=== PATIENT | male | born 1960 | race American Indian/Alaskan Native ===

== ENCOUNTER 2016-12-02 06:15 | Inpatient (IN) | payer OTHER ==
[2016-12-02] MEDS ORDERED: ECOTRIN PO ONE (06:43)
[2016-12-02] MEDS ORDERED: NACL 0.9% 500 ML 500 ML IV SCH (07:00)
[2016-12-02 07:14] LABS: Basophils % (Auto) 0.6 % (0.0-1.8); Eosinophils % (Auto) 0.7 % (0.0-4.3); Hematocrit 35.8 % (35.5-45.6); Mean Corpuscular HGB Conc 34 % (32-34); Mean Corpuscular Hemoglobin 30 pg (28-32); Mean Corpuscular Volume 90 fl (84-94); Platelet Count 191 K/mm3 (140-440); Red Blood Count 3.98 M/mm3 (3.65-5.03); Red Cell Distribution Width 15.8 % (13.2-15.2); White Blood Count 5.2 K/mm3 (4.5-11.0)
[2016-12-02 07:23] LABS: INR 1.19 (0.87-1.13)
[2016-12-02 07:43] LABS: Anion Gap 17 mmol/L; Blood Urea Nitrogen 25 mg/dL (9-20); Calcium 8.5 mg/dL (8.4-10.2); Carbon Dioxide 27 mmol/L (22-30); Chloride 96.1 mmol/L (98-107); Glucose 312 mg/dL (75-100); Potassium 3.8 mmol/L (3.6-5.0); Sodium 136 mmol/L (137-145)
[2016-12-02] MEDS ORDERED: CALAN ONE (08:09)
[2016-12-02] MEDS ORDERED: HEPARIN 10,000 UNITS/10 ML ONE (08:09)
[2016-12-02] MEDS ORDERED: HEPARIN/NS 5000 UNIT/500ML(CATH LAB) 1,000 ML IR ONE (08:09)
[2016-12-02] MEDS ORDERED: NITROGLYCERIN SYRINGE 3 ML ONE (08:09)
[2016-12-02] MEDS: SUBLIMAZE ONE ×2 (08:45→08:50)
[2016-12-02] MEDS: XYLOCAINE 2% INFILTRATI ONE ×2 (08:45→08:51)
[2016-12-02] MEDS: VERSED ONE ×2 (08:45→08:50)
[2016-12-02] MEDS ORDERED: MILK OF MAGNESIA PO PRN (09:40)
[2016-12-02] MEDS ORDERED: PERCOCET 5/325 PO PRN (09:40)
[2016-12-02] MEDS ORDERED: TYLENOL PO PRN (09:40)
[2016-12-02] MEDS ORDERED: D50W (25GM) Syringe IV PRN (09:40)
[2016-12-02] MEDS ORDERED: ALUM-MAG HYDROX-SIMETH 200-200-20MG/5ML PO PRN (09:40)
[2016-12-02] MEDS ORDERED: AMBIEN PO PRN (09:40)
[2016-12-02] MEDS ORDERED: ZOFRAN IV PRN (09:40)
[2016-12-02] MEDS ORDERED: DULCOLAX PR PRN (09:40)
--- NOTE | 2016-12-02 09:52 | Event Note ---
Date: 12/02/16 Patient presented for elective LHC and RHC and found to have significantly elevated filling pressures, and LVEF 10%. He is admitted for IV diuresis and inotropic support. Will also need to arrange for lifevest 1. Non-ischemic cardiomyopathy Non-obstructive CAD by C LVEF 10% PCWP 38 mm Hg, mean PAP 64 mm Hg, Mean RAP 41 mm Hg and LVEDP 43 mm Hg Mild to moderate aortic regurgitation 2. Acute decompensated systolic heart failure NYHA class III 3. Type II DM 4. Obstructive sleep apnea 5. Systemic Hypertension Recommendations: Admit for IV diuresis and inotropic support with milrinone Resume all home meds except for metformin (hold for 48 hours post cath) Arrange for lifevest prior to discharge Arrange for sleep study as outpatient
[2016-12-02] MEDS ORDERED: NON-FORMULARY (Potassium Chloride [Klor-Con 10] 20 MEQ) PO SCH (10:00)
[2016-12-02] MEDS: PRIMACOR 20 MG in D5W 80 ML IV SCH (10:14)
[2016-12-02] MEDS: NOVOLOG SUB-Q SCH ×4 (10:25→21:35)
[2016-12-02] MEDS ORDERED: NOVOLOG SUB-Q ONE (10:28)
--- NOTE | 2016-12-02 11:52 | Cardiac Catherization Report ---
INDICATION FOR PROCEDURE: Dilated cardiomyopathy. ORDERING PHYSICIAN: Maryuri Villaseñor MD PROCEDURES PERFORMED: 1. Selective left and right coronary angiography. 2. Left ventriculography. 3. Right heart catheterization with hemodynamic measurements and oxygen saturation run. 4. Ascending aortography. DESCRIPTION OF PROCEDURE: After obtaining written consent, the patient was draped using sterile technique. A 2% lidocaine was injected into the right wrist. A 6-[place] vascular sheath was inserted into the right radial artery. A 6-[place] vascular sheath was inserted into her left brachial vein through a previously inserted intravenous catheter. A 6-[place]izen [place] Morrice-Radu catheter was used to measure right-sided hemodynamics. A 6[place] JL4 catheter was used to selectively engage the left coronary artery. A 6-[place]izen [place] JR4 catheter was used to selectively engage the right coronary artery. A 6-Citizen [place] pigtail catheter was used to perform a left ventriculogram, and 6[place] pigtail catheter was used to perform an ascending aortogram. No complications occurred during the procedure. Hemostasis was achieved at the end of the procedure using manual pressure. ESTIMATED BLOOD LOSS: Minimal. SPECIMEN REMOVED: None. FINDINGS: HEMODYNAMICS: 1. The mean pulmonary capillary wedge pressure was 38 mmHg. 2. The pulmonary artery systolic pressure was 97 mmHg with a diastolic pressure of 42 mmHg. The mean pulmonary artery pressure was 64 mmHg. 3. The right ventricular systolic pressure was 81 mmHg with the right ventricular end-diastolic pressure of 40 mmHg. 4. The mean right arterial pressure was 41 mmHg. 5. The aortic pressure was 130/77. The left ventricular systolic pressure was 135 mmHg and the left ventricular end-diastolic pressure was 43 mmHg. 6. The pulmonary artery saturation was 42%, aortic saturation 82%, right ventricular saturation 45%, right atrial saturation 46%, and superior vena cava saturation was 50%. 7. The cardiac output is 4.73 L per minute with a cardiac index of 2.26 L per minute per meter sq. CARDIAC STRUCTURES: The ascending aorta is normal in size. The left ventricle is severely dilated with severe global left ventricular hypokinesis with the left ventricular ejection fraction estimated at less than or equal to 10%. There is evidence of [id number] aortic regurgitation. No significant mitral regurgitation was appreciated. CORONARY ANATOMY: 1. This is a left dominant circulation. 2. The left main is a very short and angiographically normal vessel. 3. The left anterior descending artery has mild diffuse 10-20% luminal irregularities. 4. The left circumflex artery is a large, dominant angiographically normal artery. 5. The right coronary artery is a small, nondominant with a 10-20% diffuse luminal irregularities. IMPRESSION: 1. Evidence of a dilated and hypokinetic left ventricle with an ejection fraction estimated at less than or equal to 10%. 2. Nonobstructive coronary artery disease with findings consistent with nonischemic cardiomyopathy. 3. Severely elevated left and right-sided filling pressures with evidence of severe pulmonary hypertension. 4. Evidence of depressed cardiac output with a pulmonary artery saturation of 42%. 5. [id number] aortic regurgitation noted on ascending aortogram. RECOMMENDATIONS: The patient will be recommended for admission. The patient will be recommended for IV diuresis and IV inotropic support. The patient also will be recommended for LifeVest prior to discharge. [facility]# [id number] YULISSA/MARY ALICE
[2016-12-02] MEDS: HALFPRIN EC PO SCH (16:02)
[2016-12-02] MEDS: COREG PO SCH ×2 (16:04→21:37)
[2016-12-02] MEDS: ALDACTONE PO SCH (16:07)
[2016-12-02] MEDS: MAG-OX PO SCH ×2 (16:07→21:36)
[2016-12-02] MEDS: GLUCOTROL XL PO SCH (16:11)
[2016-12-02] MEDS: ZAROXOLYN PO SCH (16:11)
[2016-12-02] MEDS: ZESTRIL PO SCH (16:19)
[2016-12-02] MEDS: LASIX IV SCH (19:44)
[2016-12-02] MEDS: K-DUR PO SCH (21:37)
[2016-12-03] MEDS: PRIMACOR 20 MG in D5W 80 ML IV SCH ×2 (01:20→19:39)
[2016-12-03 06:04] LABS: Anion Gap 15 mmol/L; BUN/Creatinine Ratio 22.22; Blood Urea Nitrogen 20 mg/dL (9-20); Calcium 8.4 mg/dL (8.4-10.2); Carbon Dioxide 27 mmol/L (22-30); Chloride 98.4 mmol/L (98-107); Glucose 163 mg/dL (75-100); Potassium 3.6 mmol/L (3.6-5.0); Sodium 137 mmol/L (137-145)
[2016-12-03] MEDS: LASIX IV SCH ×2 (07:25→17:42)
--- NOTE | 2016-12-03 09:53 | Progress Note ---
Assessment and Plan 1. Non-ischemic cardiomyopathy Non-obstructive CAD by [facility] LVEF 10% PCWP 38 mm Hg, mean PAP 64 mm Hg, Mean RAP 41 mm Hg and LVEDP 43 mm Hg Mild to moderate aortic regurgitation 2. Acute decompensated systolic heart failure NYHA class III 3. Type II DM 4. Obstructive sleep apnea 5. Systemic Hypertension Recommendations: Continue IV diuresis and inotropic support with milrinone Continue all home meds except for metformin (resume tomorrow) Arrange for lifevest prior to discharge Arrange for sleep study as outpatient Subjective Date of service: 12/03/16 Principal diagnosis: congestive heart failure Interval history: Looks a little better, diuresing well No significant events overnight Objective Vital Signs Temp Pulse Pulse Resp BP Pulse Ox 12/03/16 03:11 98.2 F 90 18 123/83 99 12/02/16 23:10 98.1 F 86 18 108/65 100 12/02/16 22:00 84 20 12/02/16 21:37 110/79 12/02/16 21:25 110/79 12/02/16 20:13 90 12/02/16 19:25 98.4 F 79 18 98/60 100 12/02/16 16:26 97.9 F 88 16 127/88 100 12/02/16 16:19 85 121/86 12/02/16 12:05 97.5 F L 22 116/87 12/02/16 11:15 89 15 120/82 99 12/02/16 10:45 87 12 108/83 99 12/02/16 10:30 85 16 120/84 100 12/02/16 10:15 86 13 128/86 100 12/02/16 10:07 100 12/02/16 10:00 88 20 142/99 99 - Physical Examination Narrative exam: GEN: NAD HEENT: Carotids 2+ NECK: SUPPLE, CVS: RRR, NORMAL S1S2 LUNGS/CHEST: CTA ABD: SOFT, EXTREMITIES- trace edema MSK: FROM X 4 EXTREMITIES NEURO: CN 2-12 GROSSLY INTACT, NO FOCAL DEFICITS PSY: CALM - Labs and Meds Comprehensive Metabolic Panel 12/03/16 Range/Units 04:54 Sodium 137 (137-145) mmol/L Potassium 3.6 (3.6-5.0) mmol/L Chloride 98.4 (98-107) mmol/L Carbon Dioxide 27 (22-30) mmol/L BUN 20 (9-20) mg/dL Creatinine 0.9 (0.8-1.5) mg/dL Glucose 163 H (75-100) mg/dL Calcium 8.4 (8.4-10.2) mg/dL
[2016-12-03] MEDS: K-DUR PO SCH ×2 (10:52→22:07)
[2016-12-03] MEDS: ALDACTONE PO SCH (10:52)
[2016-12-03] MEDS: GLUCOTROL XL PO SCH (10:52)
[2016-12-03] MEDS: LOVENOX SUB-Q SCH (10:52)
[2016-12-03] MEDS: ZESTRIL PO SCH (10:53)
[2016-12-03] MEDS: COREG PO SCH ×2 (10:53→22:06)
[2016-12-03] MEDS: ZAROXOLYN PO SCH (10:53)
[2016-12-03] MEDS: HALFPRIN EC PO SCH (10:53)
[2016-12-03] MEDS: MAG-OX PO SCH ×2 (10:55→22:07)
[2016-12-03] MEDS: NOVOLOG SUB-Q SCH ×4 (11:47→22:07)
[2016-12-04 05:43] LABS: Anion Gap 16 mmol/L; Blood Urea Nitrogen 21 mg/dL (9-20); Calcium 8.6 mg/dL (8.4-10.2); Carbon Dioxide 27 mmol/L (22-30); Glucose 134 mg/dL (75-100); Potassium 4.1 mmol/L (3.6-5.0); Sodium 135 mmol/L (137-145)
[2016-12-04] MEDS: PRIMACOR 20 MG in D5W 80 ML IV SCH ×3 (06:45→19:46)
[2016-12-04] MEDS: LASIX IV SCH ×2 (06:45→17:01)
[2016-12-04] MEDS: NOVOLOG SUB-Q SCH ×4 (07:30→22:28)
--- NOTE | 2016-12-04 09:37 | Progress Note ---
Assessment and Plan 1. Non-ischemic cardiomyopathy Non-obstructive CAD by [facility] LVEF 10% PCWP 38 mm Hg, mean PAP 64 mm Hg, Mean RAP 41 mm Hg and LVEDP 43 mm Hg Mild to moderate aortic regurgitation 2. Acute decompensated systolic heart failure NYHA class III 3. Type II DM 4. Obstructive sleep apnea 5. 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 Consult social service to help in expedited disability evaluation Subjective Date of service: 12/04/16 Principal diagnosis: congestive heart failure Interval history: Looks a little better, diuresing well No significant events overnight Objective Vital Signs Temp Pulse Resp BP Pulse Ox 12/04/16 05:09 98.2 F 86 18 90/52 98 12/04/16 04:00 80 12/03/16 23:38 98.2 F 91 H 18 99/59 98 12/03/16 19:21 97.9 F 81 18 108/68 98 12/03/16 17:26 97.5 F L 83 18 111/73 97 12/03/16 12:56 97.9 F 89 18 122/85 99 12/03/16 10:00 100 - Physical Examination Narrative exam: GEN: NAD HEENT: Carotids 2+ NECK: SUPPLE, CVS: RRR, NORMAL S1S2 LUNGS/CHEST: CTA ABD: SOFT, EXTREMITIES- trace edema MSK: FROM X 4 EXTREMITIES NEURO: CN 2-12 GROSSLY INTACT, NO FOCAL DEFICITS PSY: CALM - Labs and Meds Comprehensive Metabolic Panel 12/04/16 Range/Units 04:57 Sodium 135 L (137-145) mmol/L Potassium 4.1 (3.6-5.0) mmol/L Chloride 96.0 L (98-107) mmol/L Carbon Dioxide 27 (22-30) mmol/L BUN 21 H (9-20) mg/dL Creatinine 1.0 (0.8-1.5) mg/dL Glucose 134 H (75-100) mg/dL Calcium 8.6 (8.4-10.2) mg/dL
[2016-12-04] MEDS: ZESTRIL PO SCH (12:29)
[2016-12-04] MEDS: ZAROXOLYN PO SCH (12:29)
[2016-12-04] MEDS: HALFPRIN EC PO SCH (12:29)
[2016-12-04] MEDS: MAG-OX PO SCH ×2 (12:30→21:42)
[2016-12-04] MEDS: K-DUR PO SCH ×2 (12:30→21:41)
[2016-12-04] MEDS: ALDACTONE PO SCH (12:30)
[2016-12-04] MEDS: LOVENOX SUB-Q SCH (12:30)
[2016-12-04] MEDS: GLUCOTROL XL PO SCH (12:32)
[2016-12-04] MEDS: COREG PO SCH ×2 (12:33→21:42)
[2016-12-05] MEDS: PRIMACOR 20 MG in D5W 80 ML IV SCH (05:13)
[2016-12-05] MEDS: LASIX IV SCH (06:14)
[2016-12-05 07:15] LABS: Anion Gap 18 mmol/L; Blood Urea Nitrogen 21 mg/dL (9-20); Calcium 8.9 mg/dL (8.4-10.2); Carbon Dioxide 27 mmol/L (22-30); Chloride 96.7 mmol/L (98-107); Glucose 186 mg/dL (75-100); Potassium 4.4 mmol/L (3.6-5.0); Sodium 137 mmol/L (137-145)
[2016-12-05 09:31] VITALS: BP 136/85
[2016-12-05] MEDS: ZESTRIL PO SCH (09:32)
[2016-12-05] MEDS: HALFPRIN EC PO SCH (09:32)
[2016-12-05] MEDS: LOVENOX SUB-Q SCH (09:32)
[2016-12-05] MEDS: K-DUR PO SCH (09:33)
[2016-12-05] MEDS: MAG-OX PO SCH (09:33)
[2016-12-05] MEDS: ALDACTONE PO SCH (09:33)
[2016-12-05] MEDS: COREG PO SCH (09:33)
[2016-12-05] MEDS: ZAROXOLYN PO SCH (09:33)
[2016-12-05] MEDS: GLUCOTROL XL PO SCH (09:33)
[2016-12-05] MEDS: NOVOLOG SUB-Q SCH ×2 (09:34→12:41)
[2016-12-05] MEDS ORDERED: GLUCOPHAGE PO SCH (10:00)
--- NOTE | 2016-12-05 11:30 | Discharge Summary ---
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 He was admitted for IV diuresis and inotropic support for several days. Today he looks and feels better. He has no shortness of breath or lower extremity edema. The patient was recommended for a lifevest before discharge but he has since declined. Patient will be discharged today on medical therapy for his non-ischemic cardiomyopathy. 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 Disposition: TO HOME OR SELFCARE Core Measure Documentation - Palliative Care Palliative Care/ Comfort Measures: Not Applicable - Core Measures Any of the following diagnoses?: heart failure - Heart Failure Discharge Requirements ERNIE/ARB for LVSD if EF <40%: Yes Beta molly at discharge: Yes Exam - Constitutional Vitals: Temp Pulse Resp BP Pulse Ox 98.3 F 91 H 18 136/85 97 12/05/16 08:06 12/05/16 09:33 12/05/16 08:06 12/05/16 09:33 12/05/16 08:06 General appearance: Present: no acute distress - EENT Eyes: Present: PERRL - Neck Neck: Present: normal ROM - Respiratory Respiratory effort: normal - Cardiovascular Rhythm: regular - Psychiatric Psychiatric: appropriate mood/affect Plan Activity: advance as tolerated Diet: low fat, low cholesterol, low salt, diabetic Special Instructions: restrict fluid intake to (2liters per day) Follow up with: CONSTANTINO RIOS MD [Primary Care Provider] - 7 Days KAYLAN SOUZA MD [Staff Physician] - 7 Days Prescriptions: Furosemide [Lasix TAB] 60 mg PO QDAY #30 tablet
[2016-12-05] MEDS ORDERED: Fluarix Quad 2017-2018(36 MOS+) IM ONE (13:00)
[2016-12-07] MEDS ORDERED: ZAROXOLYN PO SCH (12:00)
== END 2016-12-05 14:45 | disposition home or self-care (01) | DRG 287 ==
LOC: CATHLABREC 06:15 → 4A 09:40
PROVIDERS: ADMIT Internal Medicine; ATTEND Internal Medicine Cardiovascular Disease
PROC: 4A023N8 Measurement of Cardiac Sampling and Pressure, Bilateral, Percutaneous Approach (ICD-10-PCS; principal; 2016-12-02)
PROC: B2111ZZ Fluoroscopy of Multiple Coronary Arteries using Low Osmolar Contrast (ICD-10-PCS; 2016-12-02)
PROC: B2151ZZ Fluoroscopy of Left Heart using Low Osmolar Contrast (ICD-10-PCS; 2016-12-02)
PROC: B4101ZZ Fluoroscopy of Abdominal Aorta using Low Osmolar Contrast (ICD-10-PCS; 2016-12-02)
PROC: 3E0234Z Introduction of Serum, Toxoid and Vaccine into Muscle, Percutaneous Approach (ICD-10-PCS; 2016-12-02)
DX: I11.0 Hypertensive heart disease with heart failure (principal); I50.23 Acute on chronic systolic (congestive) heart failure; I25.10 Atherosclerotic heart disease of native coronary artery without angina pectoris; I35.1 Nonrheumatic aortic (valve) insufficiency; I27.2 Other secondary pulmonary hypertension; E11.9 Type 2 diabetes mellitus without complications; I42.0 Dilated cardiomyopathy; G47.33 Obstructive sleep apnea (adult) (pediatric); Z98.49 Cataract extraction status, unspecified eye; Z82.49 Family history of ischemic heart disease and other diseases of the circulatory system; Z23 Encounter for immunization
CPT/HCPCS: 36415; 80048; 82962; 83735; 85025; 85610; 85730; 90686; 93005; 93010; 93460; 94760; 96372; A9270-GY; C1894; J1644; J1650; J1815; J1940; J2250; J2260; J3010; J7040; Q9967

== ENCOUNTER 2017-02-14 05:02 | Inpatient (IN) | payer OTHER ==
[2017-02-14 05:57] LABS: Basophils % (Auto) 0.4 % (0.0-1.8); Eosinophils % (Auto) 0.3 % (0.0-4.3); Mean Corpuscular HGB Conc 31 % (32-34); Mean Corpuscular Hemoglobin 30 pg (28-32); Mean Corpuscular Volume 96 fl (84-94); Platelet Count 212 K/mm3 (140-440); Red Blood Count 4.75 M/mm3 (3.65-5.03); Red Cell Distribution Width 15.9 % (13.2-15.2); White Blood Count 4.8 K/mm3 (4.5-11.0)
--- NOTE | 2017-02-14 05:57 | XRay Report ---
FINAL REPORT EXAM: XR CHEST ROUTINE 2V HISTORY: Shortness of breath TECHNIQUE: PA and lateral views of the chest were submitted. There are no previous studies available for comparison. FINDINGS: The heart is mildly enlarged. There is infiltrate/atelectasis in the right lower lobe with a moderate size right-sided effusion. The pulmonary vasculature is at the upper limits of normal. The skeletal structures do not show any acute changes. IMPRESSION: Infiltrates/atelectasis in the right lower lobe with right-sided effusion. Borderline pulmonary vasculature.
[2017-02-14 06:00] LABS: Hematocrit 45.7 % (35.5-45.6)
[2017-02-14 06:03] LABS: Anion Gap 24 mmol/L; BUN/Creatinine Ratio 37; Blood Urea Nitrogen 44 mg/dL (9-20); Calcium 9.1 mg/dL (8.4-10.2); Carbon Dioxide 21 mmol/L (22-30); Chloride 97.4 mmol/L (98-107); Glucose 302 mg/dL (75-100); Potassium 5.4 mmol/L (3.6-5.0); Sodium 137 mmol/L (137-145)
[2017-02-14] MEDS ORDERED: LASIX IV ONE ×2 (13:26→14:49)
[2017-02-14] MEDS ORDERED: ZITHROMAX PO ONE (13:26)
--- NOTE | 2017-02-14 13:27 | Emergency Department Report ---
ED General Adult HPI - General Chief complaint: Dyspnea/Respdistress Stated complaint: SOB Time Seen by Provider: 02/14/17 13:16 Source: patient, RN notes reviewed, old records reviewed Mode of arrival: Wheelchair Limitations: No Limitations - History of Present Illness Initial comments: This is a 56-year-old male who was previously unknown to this provider. The patient has a past medical history of heart disease, dilated left ventricle, ejection fraction at less than 10%, nonobstructive coronary artery disease with "nonischemic cardiomyopathy, pulmonary hypertension, pleural effusion. Presents to the ER with abdominal distention, shortness of breath, resolved chest pain. His symptoms are constant. They did not radiate anywhere. The increased with range of motion. They decreased with rest. -: Gradual Location: chest, left, right, lower extremity Severity scale (0 -10): 0 Quality: aching Consistency: constant Improves with: rest Worsens with: movement Associated Symptoms: chest pain, cough, shortness of breath, weakness. denies: confusion, syncope - Related Data Home Medications Medication Instructions Recorded Confirmed Last Taken Aspirin [Adult Low Dose Aspirin EC] 81 mg PO DAILY 12/02/16 02/14/17 01/05/17 AtorvaSTATin [Lipitor] 20 mg PO BID 12/02/16 02/14/17 01/05/17 Magnesium Oxide [Mag-Ox] 400 mg PO BID 12/02/16 02/14/17 01/05/17 Metolazone 5 mg PO BID 12/02/16 02/14/17 01/05/17 Potassium Chloride [Klor-Con 10] 20 meq PO BID 12/02/16 02/14/17 01/05/17 glipiZIDE [glipiZIDE ER] 5 mg PO QAM 12/02/16 02/14/17 01/05/17 metFORMIN [Glucophage] 1,000 mg PO BID 12/02/16 02/14/17 01/05/17 Carvedilol [Coreg] 6.25 mg PO BIDWM 02/14/17 02/14/17 Unknown Furosemide [Lasix TAB] 40 mg PO BID 02/14/17 02/14/17 Unknown Spironolactone [Aldactone] 25 mg PO QDAY 02/14/17 02/14/17 Unknown Torsemide [Demadex] 40 mg PO BID 02/14/17 02/14/17 Unknown Allergies Allergy/AdvReac Type Severity Reaction Status Date / Time No Known Allergies Allergy Verified 01/06/17 08:41 ED Review of Systems ROS: Stated complaint: SOB Other details as noted in HPI Constitutional: denies: fever Eyes: denies: vision change ENT: denies: epistaxis Respiratory: shortness of breath Cardiovascular: edema Gastrointestinal: denies: vomiting Genitourinary: denies: dysuria Musculoskeletal: arthralgia, myalgia Skin: denies: lesions Neurological: weakness ED Past Medical Hx - Past Medical History Hx Hypertension: Yes (2001) Hx Heart Attack/AMI: No Hx Congestive Heart Failure: Yes Hx Diabetes: Yes (Pill control) Hx Deep Vein Thrombosis: No Hx GERD: No Hx Arthritis: No Hx Asthma: Yes (last attack 2wks ago) Hx HIV: No - Social History Smoking Status: Never Smoker Substance Use Type: None - Medications Home Medications: Home Medications Medication Instructions Recorded Confirmed Last Taken Type Aspirin [Adult Low Dose Aspirin EC] 81 mg PO DAILY 12/02/16 02/14/17 01/05/17 History AtorvaSTATin [Lipitor] 20 mg PO BID 12/02/16 02/14/17 01/05/17 History Magnesium Oxide [Mag-Ox] 400 mg PO BID 12/02/16 02/14/17 01/05/17 History Metolazone 5 mg PO BID 12/02/16 02/14/17 01/05/17 History Potassium Chloride [Klor-Con 10] 20 meq PO BID 12/02/16 02/14/17 01/05/17 History glipiZIDE [glipiZIDE ER] 5 mg PO QAM 12/02/16 02/14/17 01/05/17 History metFORMIN [Glucophage] 1,000 mg PO BID 12/02/16 02/14/17 01/05/17 History Carvedilol [Coreg] 6.25 mg PO BIDWM 02/14/17 02/14/17 Unknown History Furosemide [Lasix TAB] 40 mg PO BID 02/14/17 02/14/17 Unknown History Spironolactone [Aldactone] 25 mg PO QDAY 02/14/17 02/14/17 Unknown History Torsemide [Demadex] 40 mg PO BID 02/14/17 02/14/17 Unknown History ED Physical Exam - General Limitations: No Limitations General appearance: alert, in no apparent distress, obese - Head Head exam: Present: atraumatic, normocephalic - Eye Eye exam: Present: normal appearance, EOMI. Absent: nystagmus - ENT ENT exam: Present: normal exam, normal orophraynx, mucous membranes moist, normal external ear exam - Neck Neck exam: Present: normal inspection, full ROM - Respiratory Respiratory exam: Present: decreased breath sounds, other (decreased breath sounds noted in the right hemithorax). Absent: respiratory distress, rhonchi, stridor - Cardiovascular Cardiovascular Exam: Present: regular rate, normal rhythm, normal heart sounds. Absent: systolic murmur, diastolic murmur, rubs, gallop - GI/Abdominal GI/Abdominal exam: Present: soft, distended, normal bowel sounds, other ( diffuse abdominal anasarca is noted). Absent: tenderness, guarding, rebound, rigid, pulsatile mass - Rectal Rectal exam: Present: deferred - Extremities Exam Extremities exam: Present: normal inspection, pedal edema, other (3+ pitting edema noted in the bilateral lower extremities). Absent: calf tenderness - Back Exam Back exam: Present: normal inspection, full ROM. Absent: paraspinal tenderness , vertebral tenderness - Neurological Exam Neurological exam: Present: alert, oriented X3, other (Extraocular movements intact. Tongue midline. No facial droop. Facial sensation intact to light touch in the V1, V2, V3 distribution bilaterally. 5 and 5 strength in 4 extremities.. Sensation is intact to light touch in 4 extremities.). Absent: motor sensory deficit - Psychiatric Psychiatric exam: Present: normal affect, normal mood - Skin Skin exam: Present: warm, dry, intact, normal color. Absent: rash ED Course Vital Signs 02/14/17 02/14/17 02/14/17 05:10 07:57 12:05 Temperature 97.5 F L 97.5 F L Pulse Rate 101 H 96 H 99 H Respiratory 20 18 18 Rate Blood Pressure 133/89 Blood Pressure 126/100 139/99 [Left] O2 Sat by Pulse 98 98 98 Oximetry ED Medical Decision Making - Lab Data Result diagrams: 02/14/17 05:17 02/14/17 21:17 Vital Signs 02/14/17 02/14/17 02/14/17 05:10 07:57 12:05 Temperature 97.5 F L 97.5 F L Pulse Rate 101 H 96 H 99 H Respiratory 20 18 18 Rate Blood Pressure 133/89 Blood Pressure 126/100 139/99 [Left] O2 Sat by Pulse 98 98 98 Oximetry Lab Results 02/14/17 02/14/17 02/14/17 Range/Units 05:17 05:17 05:17 WBC 4.8 (4.5-11.0) K/mm3 RBC 4.75 (3.65-5.03) M/mm3 Hgb 14.0 (11.8-15.2) gm/dl Hct 45.7 H (35.5-45.6) % MCV 96 H (84-94) fl MCH 30 (28-32) pg MCHC 31 L (32-34) % RDW 15.9 H (13.2-15.2) % Plt Count 212 (140-440) K/mm3 Lymph % (Auto) 18.7 (13.4-35.0) % Mcclain % (Auto) 13.7 H (0.0-7.3) % Eos % (Auto) 0.3 (0.0-4.3) % Baso % (Auto) 0.4 (0.0-1.8) % Lymph # 0.9 L (1.2-5.4) K/mm3 Mcclain # 0.7 (0.0-0.8) K/mm3 Eos # 0.0 (0.0-0.4) K/mm3 Baso # 0.0 (0.0-0.1) K/mm3 Seg Neutrophils % 66.9 (40.0-70.0) % Seg Neutrophils # 3.2 (1.8-7.7) K/mm3 Sodium 137 (137-145) mmol/L Potassium 5.4 H (3.6-5.0) mmol/L Chloride 97.4 L (98-107) mmol/L Carbon Dioxide 21 L (22-30) mmol/L Anion Gap 24 mmol/L BUN 44 H (9-20) mg/dL Creatinine 1.2 (0.8-1.5) mg/dL Estimated GFR > 60 ml/min BUN/Creatinine Ratio 37 % Glucose 302 H (75-100) mg/dL Lactic Acid (0.7-2.0) mmol/L Calcium 9.1 (8.4-10.2) mg/dL Troponin T 0.015 (0.00-0.029) ng/mL NT-Pro-B Natriuret Pep 7647 H (0-900) pg/mL 02/14/17 Range/Units 13:33 WBC (4.5-11.0) K/mm3 RBC (3.65-5.03) M/mm3 Hgb (11.8-15.2) gm/dl Hct (35.5-45.6) % MCV (84-94) fl MCH (28-32) pg MCHC (32-34) % RDW (13.2-15.2) % Plt Count (140-440) K/mm3 Lymph % (Auto) (13.4-35.0) % Mcclain % (Auto) (0.0-7.3) % Eos % (Auto) (0.0-4.3) % Baso % (Auto) (0.0-1.8) % Lymph # (1.2-5.4) K/mm3 Mcclain # (0.0-0.8) K/mm3 Eos # (0.0-0.4) K/mm3 Baso # (0.0-0.1) K/mm3 Seg Neutrophils % (40.0-70.0) % Seg Neutrophils # (1.8-7.7) K/mm3 Sodium (137-145) mmol/L Potassium (3.6-5.0) mmol/L Chloride (98-107) mmol/L Carbon Dioxide (22-30) mmol/L Anion Gap mmol/L BUN (9-20) mg/dL Creatinine (0.8-1.5) mg/dL Estimated GFR ml/min BUN/Creatinine Ratio % Glucose (75-100) mg/dL Lactic Acid 2.50 H* (0.7-2.0) mmol/L Calcium (8.4-10.2) mg/dL Troponin T (0.00-0.029) ng/mL NT-Pro-B Natriuret Pep (0-900) pg/mL - EKG Data -: EKG Interpreted by Me - EKG Data 02/14/17 14:12 Normal sinus, 99 bpm, normal axis, QTC prolonged, low voltage, poor R progression, abnormal EKG, not consistent with ST elevation myocardial infarction, appears grossly unchanged from prior EKG from November 2016 - Radiology Data Radiology results: report reviewed, image reviewed X-ray the chest and a stretch large pleural effusion, atelectasis versus infiltrate cannot be excluded - Medical Decision Making Differential diagnosis, including but not limited to: Recurrent pleural effusion , pulmonary hypertension, congestive heart failure, pneumonia, volume overload Assessment and plan: 56-year-old male with large right-sided pleural effusion, abdominal anasarca, lower extremity edema, elevated proBNP, we'll send a combination of pulmonary hypertension, right-sided heart failure and right- sided pleural effusion. When I go to evaluate the patient he is sleeping in a stretcher and in no significant respiratory distress. He is not requiring positive pressure ventilation or intubation at this time. However, he does require aggressive diuresis, Reduction, RV afterload reduction, and thoracic centesis at some point. Case is presented to the Hospital physician and pulmonary physician workers' compensation commissioner respectively, Dr. Burris and Dr. Schwab, who agreed to admit and consult on the patient respectively. clinically doubt pneumonia or infectious etiology, but will cover with antibiotics at admitting physician's request, patient will have blood cultures drawn, and he will be covered with ceftriaxone and azithromycin. Initial lactic acid 2.5, not especially elevated, I do not feel the patient will benefit from a 30 mL/kg bolus of IV fluids, given that he is already volume overloaded. Critical care attestation.: If time is entered above; I have spent that time in minutes in the direct care of this critically ill patient, excluding procedure time. ED Disposition Clinical Impression: Pleural effusion, CHF (congestive heart failure) Disposition: OP ADMIT IP TO THIS HOSP Is pt being admited?: Yes Condition: Good
--- NOTE | 2017-02-14 13:48 | History and Physical Report ---
History of Present Illness Chief complaint: I cant breathe right History of present illness: 56 YO Male with Systolic CHF(EF 10%), ROJAS, HTN, DM, Metabolic Syndrome presents to ED for evaluation. Pt states that he has experienced shortness of breath for the past week, with worsening symptoms over the past 2 days. Pt acknowledges Orthopnea/PND as well as noncompliance with low sodium diet. Pt denies medication noncompliance, fever, chills, CP, Palpitations, Syncope, Hemoptysis, Productive cough, BRBPR, Leg swelling, calf pain, individual/family history of DVT/PE. Upon further questioning, the patient states that he had chest discomfort with deep breathing, which resolved but did not have "chest pain". Pt seen and evaluated in ED and found to be is distress, and experiencing hypoxemic respiratory failure. Pt placed on supplemental oxygen. Pt CXR consistent with Right pleural effusion complicated by pneumonia. Pt treated with Pneumonia protocol. Past History Past Medical History: diabetes, heart failure, hypertension, other (Sleep Apnea) Past Surgical History: Other (Cardiac cath) Social history: , lives with family. denies: smoking, alcohol abuse, prescription drug abuse, IV drug use Family history: diabetes, hypertension Medications and Allergies Allergies Allergy/AdvReac Type Severity Reaction Status Date / Time No Known Allergies Allergy Verified 01/06/17 08:41 Home Medications Medication Instructions Recorded Confirmed Last Taken Type Aspirin [Adult Low Dose Aspirin EC] 81 mg PO DAILY 12/02/16 02/14/17 01/05/17 History AtorvaSTATin [Lipitor] 20 mg PO BID 12/02/16 02/14/17 01/05/17 History Magnesium Oxide [Mag-Ox] 400 mg PO BID 12/02/16 02/14/17 01/05/17 History Metolazone 5 mg PO BID 12/02/16 02/14/17 01/05/17 History Potassium Chloride [Klor-Con 10] 20 meq PO BID 12/02/16 02/14/17 01/05/17 History glipiZIDE [glipiZIDE ER] 5 mg PO QAM 12/02/16 02/14/17 01/05/17 History metFORMIN [Glucophage] 1,000 mg PO BID 12/02/16 02/14/17 01/05/17 History Carvedilol [Coreg] 12.5 mg PO BID 02/14/17 02/14/17 Unknown History Active Meds: Active Medications Ceftriaxone Sodium 1 gm/ (Sodium Chloride) 20 mls @ 20 mls/10 min IV ONCE.ED ONE PRN Reason: Protocol Stop: 02/14/17 14:24 Review of Systems Constitutional: no weight loss, no weight gain, no fever, no chills, no sweats Ears, nose, mouth and throat: no ear pain, no ear discharge, no tinnitis, no decreased hearing, no nose pain, no nasal congestion, no nasal discharge Cardiovascular: chest pain, orthopnea, edema, paroxysmal nocturnal dyspnea, no palpitations, no lightheadedness Respiratory: no cough, no cough with sputum, no excessive sputum Gastrointestinal: no nausea, no vomiting, no diarrhea, no constipation, no change in bowel habits Genitourinary Male: no dysuria, no urinary frequency, no urinary hesitancy, no nocturia Rectal: no pain, no incontinence, no bleeding Musculoskeletal: no neck stiffness, no neck pain, no shooting arm pain, no arm numbness/tingling, no low back pain, no shooting leg pain, no leg numbness/ tingling Integumentary: no rash, no pruritis, no redness, no sores, no wounds Neurological: no head injury, no transient paralysis, no paralysis, no weakness , no parathesias, no numbness, no tingling, no seizures Psychiatric: no anxiety, no memory loss, no change in sleep habits, no sleep disturbances, no insomnia, no hypersomnia, no change in appetite, no change in libido, no suicidal ideation Endocrine: no cold intolerance, no heat intolerance, no polyphagia, no excessive thirst, no polydipsia, no polyuria, no nocturia Hematologic/Lymphatic: no easy bruising, no easy bleeding Allergic/Immunologic: no urticaria, no allergic rhinitis, no wheezing Exam - Constitutional Vitals: Temp Pulse Resp BP Pulse Ox 97.5 F L 99 H 18 139/99 98 02/14/17 12:05 02/14/17 12:05 02/14/17 12:05 02/14/17 12:05 02/14/17 12:05 General appearance: Present: mild distress - EENT Eyes: Present: PERRL ENT: hearing intact, clear oral mucosa - Neck Neck: Present: supple, normal ROM - Respiratory Respiratory effort: labored Respiratory: bilateral: diminished, rhonchi - Cardiovascular Heart Sounds: Present: S1 & S2. Absent: rub, click - Extremities Extremities: pulses symmetrical, No edema Extremity abnormal: edema Peripheral Pulses: within normal limits - Abdominal General gastrointestinal: Present: soft, non-tender, non-distended, normal bowel sounds Male genitourinary: Present: normal - Integumentary Integumentary: Present: clear, warm, dry - Musculoskeletal Musculoskeletal: generalized weakness - Psychiatric Psychiatric: appropriate mood/affect, intact judgment & insight - Neurologic Neurologic: CNII-XII intact, moves all extremities Results - Labs CBC & Chem 7: 02/14/17 05:17 02/14/17 05:17 Labs: Abnormal lab results 02/14/17 02/14/17 02/14/17 Range/Units 05:17 05:17 05:17 Hct 45.7 H (35.5-45.6) % MCV 96 H (84-94) fl MCHC 31 L (32-34) % RDW 15.9 H (13.2-15.2) % [place] % (Auto) 13.7 H (0.0-7.3) % Lymph # 0.9 L (1.2-5.4) K/mm3 Potassium 5.4 H (3.6-5.0) mmol/L Chloride 97.4 L (98-107) mmol/L Carbon Dioxide 21 L (22-30) mmol/L BUN 44 H (9-20) mg/dL Glucose 302 H (75-100) mg/dL NT-Pro-B Natriuret Pep 7647 H (0-900) pg/mL Assessment and Plan - Patient Problems (1) Pneumonia Current Visit: Yes Status: Acute Qualifiers: Laterality: right Lung location: lower lobe of lung Plan to address problem: Pneumonia Protocol: IV Abx, IVF, Blood cultures, supplemental oxygen, nebulizer therapy, supportive care. (2) Acute respiratory failure with hypoxemia Current Visit: Yes Status: Acute Plan to address problem: Supplemental oxygen, nebulizer therapy, treat pneumonia, pulmonary consulted, NIPPV as clinically indicated, (3) Diabetes Current Visit: Yes Status: Acute Plan to address problem: ADA diet, insulin, accu check (4) HTN (hypertension) Current Visit: Yes Status: Acute Plan to address problem: Monitor bp q shift, continue medical management. (5) CHF (congestive heart failure) Current Visit: Yes Status: Acute Plan to address problem: Fluid restriction, monitor uop q shift, afterload reduction, remote telemetry. (6) DVT prophylaxis Current Visit: Yes Status: Acute
[2017-02-14] MEDS ORDERED: PROVENTIL IH PRN (13:49)
[2017-02-14] MEDS ORDERED: DULCOLAX PR PRN (13:49)
[2017-02-14] MEDS ORDERED: ZOFRAN IV PRN (13:49)
[2017-02-14] MEDS ORDERED: MILK OF MAGNESIA PO PRN (13:49)
[2017-02-14] MEDS ORDERED: D50W (25GM) Syringe IV PRN (13:54)
[2017-02-14] MEDS ORDERED: D50W (25GM) Vial IV PRN (14:16)
[2017-02-14] MEDS ORDERED: ZITHROMAX ONE (14:49)
[2017-02-14] MEDS: NOVOLOG SUB-Q SCH ×2 (18:42→22:12)
[2017-02-14] MEDS: LASIX IV SCH (18:43)
[2017-02-14] MEDS: cefTRIAXone 1 GM in NACL 0.9% 20 ML IV ONE ×2 (19:36→20:34)
[2017-02-14] MEDS: MAG-OX PO SCH (21:13)
[2017-02-14] MEDS: COREG PO SCH (21:14)
[2017-02-14] MEDS ORDERED: cefTRIAXone 1 GM in NACL 0.9% 20 ML IV ONE (21:45)
[2017-02-14] MEDS ORDERED: NON-FORMULARY (Potassium Chloride [Klor-Con 10] 20 MEQ) PO SCH (22:00)
[2017-02-14] MEDS: ZAROXOLYN PO SCH (22:12)
[2017-02-15] MEDS: TYLENOL PO PRN (01:27)
[2017-02-15] MEDS: LASIX IV SCH ×2 (06:41→17:51)
[2017-02-15] MEDS: NOVOLOG SUB-Q SCH ×4 (08:53→22:33)
[2017-02-15] MEDS ORDERED: ROCEPHIN/NS 1 GM/50 ML 1 GM/50 ML BAG IV SCH (10:00)
[2017-02-15] MEDS ORDERED: ZITHROMAX 500 MG in NACL 0.9% 250ML 250 ML IV SCH (10:00)
[2017-02-15] MEDS ORDERED: ZESTRIL PO SCH (10:00)
--- NOTE | 2017-02-15 10:52 | Consultation ---
History of Present Illness Consult date: 02/15/17 Consult reason: known to you History of present illness: This is a 56yr old male with a history of non-ischemic cardiomyopathy by cardiac cath 2 months ago that showed no significant coronary disease but left ventricular ejection fraction 10%. Patient is known to [facility] but was recently referred to the CHF clinic at [facility] for transplant evaluation versus LVAD. Patient presented to this hospital with complaints of worsening shortness of breath, edema and generalized weakness. A chest x-ray done in the ER reports infiltrates versus atelectasis in the right lower lobe with right sided effusion. Patient denies fever. He denies chest pain. Patient admits to noncompliance with dietary restrictions. Past History Past Medical History: diabetes, heart failure, hypertension, other (Sleep Apnea) Past Surgical History: Other (Cardiac cath) Social history: , lives with family. denies: smoking, alcohol abuse, prescription drug abuse, IV drug use Family history: diabetes, hypertension Medications and Allergies Allergies Allergy/AdvReac Type Severity Reaction Status Date / Time No Known Allergies Allergy Verified 01/06/17 08:41 Home Medications Medication Instructions Recorded Confirmed Last Taken Type Aspirin [Adult Low Dose Aspirin EC] 81 mg PO DAILY 12/02/16 02/14/17 01/05/17 History AtorvaSTATin [Lipitor] 20 mg PO BID 12/02/16 02/14/17 01/05/17 History Magnesium Oxide [Mag-Ox] 400 mg PO BID 12/02/16 02/14/17 01/05/17 History Metolazone 5 mg PO BID 12/02/16 02/14/17 01/05/17 History Potassium Chloride [Klor-Con 10] 20 meq PO BID 12/02/16 02/14/17 01/05/17 History glipiZIDE [glipiZIDE ER] 5 mg PO QAM 12/02/16 02/14/17 01/05/17 History metFORMIN [Glucophage] 1,000 mg PO BID 12/02/16 02/14/17 01/05/17 History Carvedilol [Coreg] 6.25 mg PO BIDWM 02/14/17 02/14/17 Unknown History Furosemide [Lasix TAB] 40 mg PO BID 02/14/17 02/14/17 Unknown History Spironolactone [Aldactone] 25 mg PO QDAY 02/14/17 02/14/17 Unknown History Torsemide [Demadex] 40 mg PO BID 02/14/17 02/14/17 Unknown History Active Meds: Active Medications Acetaminophen (Tylenol) 650 mg PO Q4H PRN PRN Reason: Pain MILD(1-3)/Fever >100.5/NAYAK Last Admin: 02/15/17 01:27 Dose: 650 mg Albuterol (Proventil) 2.5 mg IH Q4HRT PRN PRN Reason: Shortness Of Breath Aspirin (Halfprin Ec) 81 mg PO DAILY [facility] Atorvastatin Calcium (Lipitor) 20 mg PO BID [facility] Last Admin: 02/14/17 21:13 Dose: 20 mg Azithromycin (Zithromax) 500 mg PO QDAY [facility] Bisacodyl (Dulcolax) 10 mg [place] QDAY PRN PRN Reason: Constipation unrelieved by MOM Carvedilol (Coreg) 6.25 mg PO BID [facility] Last Admin: 02/14/17 21:14 Dose: 6.25 mg Dextrose (D50w (25gm) Vial) 25 gm IV PRN PRN PRN Reason: HYPOGLYCEMIA Furosemide (Lasix) 40 mg IV BID@0600,1800 [facility] Last Admin: 02/15/17 06:41 Dose: 40 mg Ceftriaxone Sodium 1 gm/ (Sodium Chloride) 20 mls @ 20 mls/10 min IV Q24HR [facility] Insulin Aspart (Novolog) 0 units SUB-Q ACHS [facility] PRN Reason: Protocol Last Admin: 02/15/17 08:53 Dose: Not Given Lisinopril (Zestril) 40 mg PO DAILY [facility] Magnesium Hydroxide (Milk Of Magnesia) 30 ml PO Q4H PRN PRN Reason: Constipation Magnesium Oxide (Mag-Ox) 400 mg PO BID [facility] Last Admin: 02/14/17 21:13 Dose: 400 mg Metolazone (Zaroxolyn) 5 mg PO BID [facility] Last Admin: 02/14/17 22:12 Dose: 5 mg Ondansetron HCl (Zofran) 4 mg IV Q8H PRN PRN Reason: N/V unrelieved by Reglan Physical Examination Vital Signs Temp Pulse Resp BP Pulse Ox 97.5 F L 101 H 20 133/89 98 02/14/17 05:10 02/14/17 05:10 02/14/17 05:10 02/14/17 05:10 02/14/17 05:10 Results 02/14/17 05:17 02/14/17 21:17 Comprehensive Metabolic Panel 02/14/17 Range/Units 21:17 Potassium 4.6 (3.6-5.0) mmol/L Assessment and Plan Decompensated systolic heart failure Right Pleural effusion Non-ischemic cardiomyopathy Non-obstructive CAD LVEF 10% by [facility] 11/2016 DM Obstructive sleep apnea Hypertension
[2017-02-15] MEDS: HALFPRIN EC PO SCH (11:26)
[2017-02-15] MEDS: ZITHROMAX PO SCH (11:26)
[2017-02-15] MEDS: MAG-OX PO SCH ×2 (11:26→22:34)
[2017-02-15] MEDS: COREG PO SCH (11:36)
--- NOTE | 2017-02-15 12:11 | Consultation ---
History of Present Illness Consult date: 02/15/17 Requesting physician: ROSALINDA VEE Reason for consult: pleural effusion History of present illness: 56 y/o male with known CHF (systolic) and recurrent pleural effusion, admitted with dyspnea. Has right sided effusion. This was just tapped in December via rads on an order from our office. Past History Past Medical History: diabetes, heart failure, hypertension, other (Sleep Apnea) Past Surgical History: Other (Cardiac cath) Social history: , lives with family. denies: smoking, alcohol abuse, prescription drug abuse, IV drug use Family history: diabetes, hypertension Medications and Allergies Allergies Allergy/AdvReac Type Severity Reaction Status Date / Time No Known Allergies Allergy Verified 01/06/17 08:41 Home Medications Medication Instructions Recorded Confirmed Last Taken Type Aspirin [Adult Low Dose Aspirin EC] 81 mg PO DAILY 12/02/16 02/14/17 01/05/17 History AtorvaSTATin [Lipitor] 20 mg PO BID 12/02/16 02/14/17 01/05/17 History Magnesium Oxide [Mag-Ox] 400 mg PO BID 12/02/16 02/14/17 01/05/17 History Metolazone 5 mg PO BID 12/02/16 02/14/17 01/05/17 History Potassium Chloride [Klor-Con 10] 20 meq PO BID 12/02/16 02/14/17 01/05/17 History glipiZIDE [glipiZIDE ER] 5 mg PO QAM 12/02/16 02/14/17 01/05/17 History metFORMIN [Glucophage] 1,000 mg PO BID 12/02/16 02/14/17 01/05/17 History Carvedilol [Coreg] 6.25 mg PO BIDWM 02/14/17 02/14/17 Unknown History Furosemide [Lasix TAB] 40 mg PO BID 02/14/17 02/14/17 Unknown History Spironolactone [Aldactone] 25 mg PO QDAY 02/14/17 02/14/17 Unknown History Torsemide [Demadex] 40 mg PO BID 02/14/17 02/14/17 Unknown History Active Meds: Active Medications Acetaminophen (Tylenol) 650 mg PO Q4H PRN PRN Reason: Pain MILD(1-3)/Fever >100.5/NAYAK Last Admin: 02/15/17 01:27 Dose: 650 mg Albuterol (Proventil) 2.5 mg IH Q4HRT PRN PRN Reason: Shortness Of Breath Aspirin (Halfprin Ec) 81 mg PO DAILY [facility] Last Admin: 02/15/17 11:26 Dose: 81 mg Atorvastatin Calcium (Lipitor) 20 mg PO BID [facility] Last Admin: 02/15/17 11:37 Dose: 20 mg Azithromycin (Zithromax) 500 mg PO QDAY [facility] Last Admin: 02/15/17 11:26 Dose: 500 mg Bisacodyl (Dulcolax) 10 mg ND QDAY PRN PRN Reason: Constipation unrelieved by MOM Carvedilol (Coreg) 3.125 mg PO BID [facility] Dextrose (D50w (25gm) Vial) 25 gm IV PRN PRN PRN Reason: HYPOGLYCEMIA Furosemide (Lasix) 40 mg IV BID@0600,1800 [facility] Last Admin: 02/15/17 06:41 Dose: 40 mg Ceftriaxone Sodium 1 gm/ (Sodium Chloride) 20 mls @ 20 mls/10 min IV Q24HR [facility] Insulin Aspart (Novolog) 0 units SUB-Q ACHS [facility] PRN Reason: Protocol Last Admin: 02/15/17 08:53 Dose: Not Given Lisinopril (Zestril) 40 mg PO DAILY [facility] Last Admin: 02/15/17 11:37 Dose: Not Given Magnesium Hydroxide (Milk Of Magnesia) 30 ml PO Q4H PRN PRN Reason: Constipation Magnesium Oxide (Mag-Ox) 400 mg PO BID [facility] Last Admin: 02/15/17 11:26 Dose: 400 mg Metolazone (Zaroxolyn) 5 mg PO BID [facility] Last Admin: 02/14/17 22:12 Dose: 5 mg Ondansetron HCl (Zofran) 4 mg IV Q8H PRN PRN Reason: N/V unrelieved by Reglan Spironolactone (Aldactone) 25 mg PO QDAY [facility] Review of Systems All systems: negative Physical Examination Vital signs: Vital Signs Temp Pulse Resp BP Pulse Ox 97.5 F L 101 H 20 133/89 98 02/14/17 05:10 02/14/17 05:10 02/14/17 05:10 02/14/17 05:10 02/14/17 05:10 General appearance: no acute distress, appears uncomfortable Eyes: non-icteric ENT: oropharynx moist Neck: supple Effort: mildly labored Ascultation: Right: diminished breath sounds (base), rales (base) Percussion: Right: dull, Left: not dull Tactile fremitus: Right: diminished Cardiovascular: regular rate and rhythm Gastrointestinal: normoactive bowel sounds Extremities: edema normal mental status, non-focal exam Results - Laboratory Findings CBC and BMP: 02/14/17 05:17 02/16/17 06:38 Abnormal lab findings: Abnormal Labs 02/14/17 02/14/17 02/14/17 05:17 05:17 05:17 Hct 45.7 H MCV 96 H MCHC 31 L RDW 15.9 H [place] % (Auto) 13.7 H Lymph # 0.9 L Potassium 5.4 H Chloride 97.4 L Carbon Dioxide 21 L BUN 44 H Glucose 302 H POC Glucose Lactic Acid NT-Pro-B Natriuret Pep 7647 H 02/14/17 02/14/17 02/14/17 13:33 16:22 21:06 Hct MCV MCHC RDW [place] % (Auto) Lymph # Potassium Chloride Carbon Dioxide BUN Glucose POC Glucose 275 H 337 H Lactic Acid 2.50 H* NT-Pro-B Natriuret Pep 02/15/17 11:36 Hct MCV MCHC RDW [place] % (Auto) Lymph # Potassium Chloride Carbon Dioxide BUN Glucose POC Glucose 117 H Lactic Acid NT-Pro-B Natriuret Pep - Diagnostic Findings Chest x-ray: image reviewed (right sided effusion) Assessment and Plan 56 y/o male with systolic heart failure and right sided pleural effusion. 1. Await cards evaluation, if they elect to start Inotropes and want to watch effusion will do 2. If they feel that thora is still needed, will tap at bedside today.
[2017-02-15] MEDS: cefTRIAXone 1 GM in NACL 0.9% 20 ML IV SCH (12:49)
[2017-02-15] MEDS: ZAROXOLYN PO SCH ×2 (13:12→22:34)
--- NOTE | 2017-02-15 14:25 | Progress Note ---
Assessment and Plan Assessment and plan: 56 YO Male with Systolic CHF(EF 10%), ROJAS, HTN, DM, Metabolic Syndrome presents to ED for evaluation. Pt states that he has experienced shortness of breath for the past week, with worsening symptoms over the past 2 days. Pt acknowledges Orthopnea/PND as well as noncompliance with low sodium diet. Pt denies medication noncompliance, fever, chills, CP, Palpitations, Syncope, Hemoptysis, Productive cough, BRBPR, Leg swelling, calf pain, individual/family history of DVT/PE. Upon further questioning, the patient states that he had chest discomfort with deep breathing, which resolved but did not have "chest pain". Pt seen and evaluated in ED and found to be is distress, and experiencing hypoxemic respiratory failure. Pt placed on supplemental oxygen. Pt CXR consistent with Right pleural effusion complicated by pneumonia. Pt treated with Pneumonia protocol. Acute on Chronic Systolic congestive heart failure-Probably endstage Aspiration pneumonitis Diabetes mellitus with hypoglycemia Obesity HTN Generalized Anascar likely secondary to CHF B/L lower ext cellulitis with poor healing wound Right sided pleural effusion Mild to Moderate Protein calorie malnutrition Plan * Continue supportvie care * Discussed with cardiology will transfer to Tele * Strict I/O, Daily weight * Continue emperic antibiotics, patient is significantly anascar procluding fluids * Oxygen therapy with NPPIV if needed * Pulmonary consult, noted * Add insulin qhs * Miralone per cardiology * Lactic acidosis * compliance counselling provided * wound care consult * DVT/GI prophy * poor prognosis. plan of care discussed with patient and with cardioloist History Interval history: Patient see and examined, in mild respiratory distress. denies chest pain, nausea, vomiting, diarrhea, fever. still reports shortness of breath. per patient he ran out of his meds, also was recently admitted in a local [facility] for the same condition. Hospitalist Physical - Constitutional Vitals: Temp Pulse Resp BP Pulse Ox 97.3 F L 67 18 103/72 92 02/15/17 07:30 02/15/17 07:30 02/15/17 07:30 02/15/17 11:37 02/15/17 07:30 General appearance: Present: mild distress - EENT Eyes: Present: PERRL, EOM intact ENT: hearing intact - Neck Neck: Present: supple, normal ROM - Respiratory Respiratory effort: labored Respiratory: bilateral: rhonchi - Cardiovascular Rhythm: regular Heart Sounds: Present: S1 & S2. Absent: systolic murmur, diastolic murmur - Extremities Extremities: Full ROM Extremity abnormal: edema (+2 generalzed ) Peripheral Pulses: within normal limits - Abdominal General gastrointestinal: soft, non-tender, non-distended, other (generalized anascar) - Integumentary Integumentary: Present: clear, warm, decreased turgor - Psychiatric Psychiatric: appropriate mood/affect, cooperative - Neurologic Neurologic: CNII-XII intact, moves all extremities - Allied Health Allied health notes reviewed: nursing Results - Labs CBC & Chem 7: 02/14/17 05:17 12 21:17 Labs: Laboratory Last Values WBC 4.8 K/mm3 (4.5-11.0) 02/14/17 05:17 RBC 4.75 M/mm3 (3.65-5.03) 02/14/17 05:17 Hgb 14.0 gm/dl (11.8-15.2) 02/14/17 05:17 Hct 45.7 % (35.5-45.6) H 02/14/17 05:17 MCV 96 fl (84-94) H 02/14/17 05:17 MCH 30 pg (28-32) 02/14/17 05:17 MCHC 31 % (32-34) L 02/14/17 05:17 RDW 15.9 % (13.2-15.2) H 02/14/17 05:17 Plt Count 212 K/mm3 (140-440) 02/14/17 05:17 Lymph % (Auto) 18.7 % (13.4-35.0) 02/14/17 05:17 [place] % (Auto) 13.7 % (0.0-7.3) H 02/14/17 05:17 Eos % (Auto) 0.3 % (0.0-4.3) 02/14/17 05:17 Baso % (Auto) 0.4 % (0.0-1.8) 02/14/17 05:17 Lymph # 0.9 K/mm3 (1.2-5.4) L 02/14/17 05:17 [place] # 0.7 K/mm3 (0.0-0.8) 02/14/17 05:17 Eos # 0.0 K/mm3 (0.0-0.4) 02/14/17 05:17 Baso # 0.0 K/mm3 (0.0-0.1) 02/14/17 05:17 Seg Neutrophils % 66.9 % (40.0-70.0) 02/14/17 05:17 Seg Neutrophils # 3.2 K/mm3 (1.8-7.7) 02/14/17 05:17 Sodium 137 mmol/L (137-145) 02/14/17 05:17 Potassium 4.6 mmol/L (3.6-5.0) 02/14/17 21:17 Chloride 97.4 mmol/L (98-107) L 02/14/17 05:17 Carbon Dioxide 21 mmol/L (22-30) L 02/14/17 05:17 Anion Gap 24 mmol/L 02/14/17 05:17 BUN 44 mg/dL (9-20) H 02/14/17 05:17 Creatinine 1.2 mg/dL (0.8-1.5) 02/14/17 05:17 Estimated GFR > 60 ml/min 02/14/17 05:17 BUN/Creatinine Ratio 37 % 02/14/17 05:17 Glucose 302 mg/dL (75-100) H 02/14/17 05:17 POC Glucose 117 (70-105) H 02/15/17 11:36 Lactic Acid 2.40 mmol/L (0.7-2.0) H* 02/15/17 12:06 Calcium 9.1 mg/dL (8.4-10.2) 02/14/17 05:17 Troponin T 0.015 ng/mL (0.00-0.029) 02/14/17 05:17 NT-Pro-B Natriuret Pep 7647 pg/mL (0-900) H 02/14/17 05:17 - Imaging and Cardiology Chest x-ray: image reviewed (generalized anasacar)
[2017-02-15] MEDS: MILRINONE-D5W 20 MG/100 ML 20 MG/100 ML BAG IV SCH (16:25)
[2017-02-15] MEDS ORDERED: COREG PO SCH (22:00)
[2017-02-15] MEDS: LEVEMIR SUB-Q SCH (22:33)
[2017-02-16] MEDS: MILRINONE-D5W 20 MG/100 ML 20 MG/100 ML BAG IV SCH ×2 (06:32→20:09)
[2017-02-16] MEDS: LASIX IV SCH ×2 (06:32→18:53)
[2017-02-16 07:20] LABS: BUN/Creatinine Ratio 37; Blood Urea Nitrogen 41 mg/dL (9-20); Calcium 8.9 mg/dL (8.4-10.2); Carbon Dioxide 30 mmol/L (22-30); Glucose 185 mg/dL (75-100); Potassium 3.8 mmol/L (3.6-5.0); Sodium 142 mmol/L (137-145)
[2017-02-16 07:27] LABS: Anion Gap 16 mmol/L
[2017-02-16] MEDS: MAG-OX PO SCH ×2 (09:22→22:56)
[2017-02-16] MEDS: ZITHROMAX PO SCH (09:22)
[2017-02-16] MEDS: ZAROXOLYN PO SCH ×2 (09:23→22:56)
[2017-02-16] MEDS: HALFPRIN EC PO SCH (09:23)
[2017-02-16] MEDS: NOVOLOG SUB-Q SCH ×4 (09:23→23:01)
[2017-02-16] MEDS ORDERED: ALDACTONE PO SCH (10:00)
[2017-02-16] MEDS: cefTRIAXone 1 GM in NACL 0.9% 20 ML IV SCH (10:55)
--- NOTE | 2017-02-16 12:09 | Progress Note ---
Assessment and Plan 56 y/o male with systolic heart failure and right sided pleural effusion. 1. Repeat CXR in am 2. Pending clinical status, may decide to tap tomorrow but will discuss with patient and cards first 3. Continue supplemental O2. Subjective Date of service: 02/16/17 Interval history: No acute events. Feels better with inotropic therapy. Objective Vital Signs - 12hr 02/16/17 02/16/17 00:20 06:08 Temperature 97.5 F L 97.8 F Pulse Rate 97 H 94 H Respiratory 20 20 Rate Blood Pressure 110/74 120/88 O2 Sat by Pulse 100 100 Oximetry Constitutional: no acute distress, appears uncomfortable Eyes: non-icteric ENT: oropharynx moist Neck: supple Effort: mildly labored Ascultation: Right: diminished breath sounds (base), rales (base) Percussion: Right: dull, Left: not dull Tactile fremitus: Right: diminished Cardiovascular: regular rate and rhythm Gastrointestinal: normoactive bowel sounds Extremities: edema Neurologic: normal mental status, non-focal exam CBC and BMP: 02/14/17 05:17 02/16/17 06:38 Abnormal lab findings: Abnormal Labs 02/14/17 02/14/17 02/14/17 05:17 05:17 05:17 Hct 45.7 H MCV 96 H MCHC 31 L RDW 15.9 H [place] % (Auto) 13.7 H Lymph # 0.9 L Potassium 5.4 H Chloride 97.4 L Carbon Dioxide 21 L BUN 44 H Glucose 302 H POC Glucose Lactic Acid NT-Pro-B Natriuret Pep 7647 H 02/14/17 02/14/17 02/14/17 13:33 16:22 21:06 Hct MCV MCHC RDW [place] % (Auto) Lymph # Potassium Chloride Carbon Dioxide BUN Glucose POC Glucose 275 H 337 H Lactic Acid 2.50 H* NT-Pro-B Natriuret Pep 02/15/17 02/15/17 02/15/17 11:36 12:06 16:13 Hct MCV MCHC RDW [place] % (Auto) Lymph # Potassium Chloride Carbon Dioxide BUN Glucose POC Glucose 117 H 229 H Lactic Acid 2.40 H* NT-Pro-B Natriuret Pep 02/15/17 02/16/17 02/16/17 21:36 06:38 07:53 Hct MCV MCHC RDW [place] % (Auto) Lymph # Potassium Chloride Carbon Dioxide BUN 41 H Glucose 185 H POC Glucose 249 H 168 H Lactic Acid NT-Pro-B Natriuret Pep
--- NOTE | 2017-02-16 14:04 | Progress Note ---
Assessment and Plan Assessment and plan: 56 YO Male with Systolic CHF(EF 10%), ROJAS, HTN, DM, Metabolic Syndrome presents to ED for evaluation. Pt states that he has experienced shortness of breath for the past week, with worsening symptoms over the past 2 days. Pt acknowledges Orthopnea/PND as well as noncompliance with low sodium diet. Pt denies medication noncompliance, fever, chills, CP, Palpitations, Syncope, Hemoptysis, Productive cough, BRBPR, Leg swelling, calf pain, individual/family history of DVT/PE. Upon further questioning, the patient states that he had chest discomfort with deep breathing, which resolved but did not have "chest pain". Pt seen and evaluated in ED and found to be is distress, and experiencing hypoxemic respiratory failure. Pt placed on supplemental oxygen. Pt CXR consistent with Right pleural effusion complicated by pneumonia. Pt treated with Pneumonia protocol. Acute on Chronic Systolic congestive heart failure-Probably endstage Aspiration pneumonitis Diabetes mellitus with hyperglycemia Obesity HTN Generalized Anascar likely secondary to CHF B/L lower ext cellulitis with poor healing wound Right sided pleural effusion Mild to Moderate Protein calorie malnutrition Plan * Continue supportvie care * Discussed with cardiology * Contiuue IV inotropic, metalazone * Strict I/O, Daily weight * Continue emperic antibiotics, patient is significantly anascar precluding fluids * Repeat Chest xray * Oxygen therapy with NPPIV if needed * Pulmonary consult, noted * continue insulin qhs * Miralone per cardiology * Lactic acidosis * compliance counselling provided * wound care consult * DVT/GI prophy * poor prognosis. plan of care discussed with patient and with gravel hauler History Interval history: Patient see and examined, in mild respiratory distress. denies chest pain, nausea, vomiting, diarrhea, fever. still reports shortness of breath BUT IMPROVING TODAY. per patient he ran out of his meds, also was recently admitted in a local [facility] hospital for the same condition. Hospitalist Physical - Physical exam Narrative exam: General appearance: Present: mild distress - EENT Eyes: Present: PERRL, EOM intact ENT: hearing intact - Neck Neck: Present: supple, normal ROM +JVD - Respiratory Respiratory effort: labored Respiratory: bilateral: rhonchi - Cardiovascular Rhythm: regular Heart Sounds: Present: S1 & S2. Absent: systolic murmur, diastolic murmur - Extremities Extremities: Full ROM Extremity abnormal: edema (+2 generalzed ) Peripheral Pulses: within normal limits - Abdominal General gastrointestinal: soft, non-tender, non-distended, other (generalized anascar) - Integumentary Integumentary: Present: clear, warm, decreased turgor - Psychiatric Psychiatric: appropriate mood/affect, cooperative - Neurologic Neurologic: CNII-XII intact, moves all extremities - Allied Health Allied health notes reviewed: nursing - Constitutional Vitals: Temp Pulse Resp BP Pulse Ox 97.8 F 94 H 20 120/88 100 02/16/17 06:08 02/16/17 06:08 02/16/17 06:08 02/16/17 06:08 02/16/17 06:08 General appearance: Present: mild distress Results - Labs CBC & Chem 7: 02/14/17 05:17 02/16/17 06:38 Labs: Laboratory Last Values WBC 4.8 K/mm3 (4.5-11.0) 02/14/17 05:17 RBC 4.75 M/mm3 (3.65-5.03) 02/14/17 05:17 Hgb 14.0 gm/dl (11.8-15.2) 02/14/17 05:17 Hct 45.7 % (35.5-45.6) H 02/14/17 05:17 MCV 96 fl (84-94) H 02/14/17 05:17 MCH 30 pg (28-32) 02/14/17 05:17 MCHC 31 % (32-34) L 02/14/17 05:17 RDW 15.9 % (13.2-15.2) H 02/14/17 05:17 Plt Count 212 K/mm3 (140-440) 02/14/17 05:17 Lymph % (Auto) 18.7 % (13.4-35.0) 02/14/17 05:17 [place] % (Auto) 13.7 % (0.0-7.3) H 02/14/17 05:17 Eos % (Auto) 0.3 % (0.0-4.3) 02/14/17 05:17 Baso % (Auto) 0.4 % (0.0-1.8) 02/14/17 05:17 Lymph # 0.9 K/mm3 (1.2-5.4) L 02/14/17 05:17 [place] # 0.7 K/mm3 (0.0-0.8) 02/14/17 05:17 Eos # 0.0 K/mm3 (0.0-0.4) 02/14/17 05:17 Baso # 0.0 K/mm3 (0.0-0.1) 02/14/17 05:17 Seg Neutrophils % 66.9 % (40.0-70.0) 02/14/17 05:17 Seg Neutrophils # 3.2 K/mm3 (1.8-7.7) 02/14/17 05:17 Sodium 142 mmol/L (137-145) 02/16/17 06:38 Potassium 3.8 mmol/L (3.6-5.0) 02/16/17 06:38 Chloride 100.0 mmol/L (98-107) 02/16/17 06:38 Carbon Dioxide 30 mmol/L (22-30) D 02/16/17 06:38 Anion Gap 16 mmol/L 02/16/17 06:38 BUN 41 mg/dL (9-20) H 02/16/17 06:38 Creatinine 1.1 mg/dL (0.8-1.5) 02/16/17 06:38 Estimated GFR > 60 ml/min 02/16/17 06:38 BUN/Creatinine Ratio 37 % 02/16/17 06:38 Glucose 185 mg/dL (75-100) H 02/16/17 06:38 POC Glucose 162 (70-105) H 02/16/17 12:45 Lactic Acid 2.40 mmol/L (0.7-2.0) H* 02/15/17 12:06 Calcium 8.9 mg/dL (8.4-10.2) 02/16/17 06:38 Troponin T 0.015 ng/mL (0.00-0.029) 02/14/17 05:17 NT-Pro-B Natriuret Pep 7647 pg/mL (0-900) H 02/14/17 05:17
--- NOTE | 2017-02-16 16:37 | Progress Note ---
Assessment and Plan Acute systolic heart failure secondary to noncompliance Right Pleural effusion Non-ischemic cardiomyopathy Non-obstructive CAD LVEF 10% by [facility] 11/2016 DM Obstructive sleep apnea Hypertension Lactic acidosis Continue aggressive medical management for decompensated heart failure with IV diuretics, IV inotropic therapy and metolazone. Strict I's and O's. Sodium/fluid restriction. Daily weight. Subjective Date of service: 02/16/17 Interval history: Patient reports his breathing has improved. No events on telemetry monitoring. Objective Vital Signs Temp Pulse Resp BP Pulse Ox 02/16/17 06:08 97.8 F 94 H 20 120/88 100 02/16/17 00:20 97.5 F L 97 H 20 110/74 100 02/15/17 19:40 98.4 F 98 H 22 117/82 100 - Physical Examination General: No Apparent Distress HEENT: Positive: PERRL Cardiac: Positive: Reg Rate and Rhythm - Labs and Meds Comprehensive Metabolic Panel 02/16/17 Range/Units 06:38 Sodium 142 (137-145) mmol/L Potassium 3.8 (3.6-5.0) mmol/L Chloride 100.0 (98-107) mmol/L Carbon Dioxide 30 D (22-30) mmol/L BUN 41 H (9-20) mg/dL Creatinine 1.1 (0.8-1.5) mg/dL Glucose 185 H (75-100) mg/dL Calcium 8.9 (8.4-10.2) mg/dL
[2017-02-16] MEDS: LEVEMIR SUB-Q SCH (22:56)
[2017-02-17 07:25] LABS: Anion Gap 16 mmol/L; BUN/Creatinine Ratio 34; Blood Urea Nitrogen 34 mg/dL (9-20); Calcium 8.9 mg/dL (8.4-10.2); Carbon Dioxide 30 mmol/L (22-30); Chloride 99.6 mmol/L (98-107); Glucose 191 mg/dL (75-100); Potassium 4.2 mmol/L (3.6-5.0); Sodium 141 mmol/L (137-145)
[2017-02-17] MEDS: LASIX IV SCH ×2 (07:55→20:44)
[2017-02-17] MEDS: NOVOLOG SUB-Q SCH ×4 (08:30→21:10)
--- NOTE | 2017-02-17 09:59 | XRay Report ---
AP CHEST: HISTORY: Followup pleural effusion The moderate right pleural effusion has decreased by 1-2 rib levels since 02/14/17. Cardiomegaly, vascular congestion and right basilar atelectasis are stable. No pneumothorax. IMPRESSION: Decreased right pleural effusion as described.
--- NOTE | 2017-02-17 12:09 | Progress Note ---
Assessment and Plan 56 y/o male with systolic heart failure and right sided pleural effusion. 1. Continue supplemental O2 2. Will see PRN Subjective Date of service: 02/17/17 Interval history: Radiographically, fluid has decreased and patient feels better Objective Vital Signs - 12hr 02/17/17 02/17/17 06:00 08:16 Temperature 97.8 F Pulse Rate 97 H Respiratory 20 Rate Blood Pressure 111/73 O2 Sat by Pulse 96 100 Oximetry Constitutional: no acute distress, appears uncomfortable Eyes: non-icteric ENT: oropharynx moist Neck: supple Effort: mildly labored Ascultation: Right: diminished breath sounds (base), rales (base) Percussion: Right: dull, Left: not dull Tactile fremitus: Right: diminished Cardiovascular: regular rate and rhythm Gastrointestinal: normoactive bowel sounds Extremities: edema Neurologic: normal mental status, non-focal exam CBC and BMP: 02/14/17 05:17 02/17/17 06:48 Abnormal lab findings: Abnormal Labs 02/14/17 02/14/17 02/14/17 05:17 05:17 05:17 Hct 45.7 H MCV 96 H MCHC 31 L RDW 15.9 H [place] % (Auto) 13.7 H Lymph # 0.9 L Potassium 5.4 H Chloride 97.4 L Carbon Dioxide 21 L BUN 44 H Glucose 302 H POC Glucose Lactic Acid NT-Pro-B Natriuret Pep 7647 H 02/14/17 02/14/17 02/14/17 13:33 16:22 21:06 Hct MCV MCHC RDW [place] % (Auto) Lymph # Potassium Chloride Carbon Dioxide BUN Glucose POC Glucose 275 H 337 H Lactic Acid 2.50 H* NT-Pro-B Natriuret Pep 02/15/17 02/15/17 02/15/17 11:36 12:06 16:13 Hct MCV MCHC RDW [place] % (Auto) Lymph # Potassium Chloride Carbon Dioxide BUN Glucose POC Glucose 117 H 229 H Lactic Acid 2.40 H* NT-Pro-B Natriuret Pep 02/15/17 02/16/17 02/16/17 21:36 06:38 07:53 Hct MCV MCHC RDW [place] % (Auto) Lymph # Potassium Chloride Carbon Dioxide BUN 41 H Glucose 185 H POC Glucose 249 H 168 H Lactic Acid NT-Pro-B Natriuret Pep 02/16/17 02/16/17 02/16/17 12:45 16:46 21:50 Hct MCV MCHC RDW [place] % (Auto) Lymph # Potassium Chloride Carbon Dioxide BUN Glucose POC Glucose 162 H 194 H 168 H Lactic Acid NT-Pro-B Natriuret Pep 02/17/17 02/17/17 06:48 09:24 Hct MCV MCHC RDW [place] % (Auto) Lymph # Potassium Chloride Carbon Dioxide BUN 34 H Glucose 191 H POC Glucose 180 H Lactic Acid NT-Pro-B Natriuret Pep
--- NOTE | 2017-02-17 12:35 | Progress Note ---
Assessment and Plan Acute decompensated systolic heart failure NYHA class IV Non-ischemic cardiomyopathy, stage D Non-compliance with medical therapy Recommendations: Continue current management Subjective Date of service: 02/17/17 Principal diagnosis: CHF Interval history: Patient is feeling better this morning Objective Vital Signs Temp Pulse Resp BP Pulse Ox 02/17/17 08:16 100 02/17/17 06:00 97.8 F 97 H 20 111/73 96 02/16/17 23:47 98.3 F 96 H 20 138/94 99 02/16/17 22:00 20 98 02/16/17 20:37 98.3 F 94 H 18 130/80 100 02/16/17 16:43 98.1 F 92 H 18 117/88 100 02/16/17 12:43 98.2 F 95 H 18 118/77 100 - Physical Examination General: No Apparent Distress HEENT: Positive: PERRL Neck: Positive: neck supple Cardiac: Positive: Reg Rate and Rhythm Lungs: Positive: Normal Exam - Labs and Meds Comprehensive Metabolic Panel 02/17/17 Range/Units 06:48 Sodium 141 (137-145) mmol/L Potassium 4.2 (3.6-5.0) mmol/L Chloride 99.6 (98-107) mmol/L Carbon Dioxide 30 (22-30) mmol/L BUN 34 H (9-20) mg/dL Creatinine 1.0 (0.8-1.5) mg/dL Glucose 191 H (75-100) mg/dL Calcium 8.9 (8.4-10.2) mg/dL
[2017-02-17] MEDS: HALFPRIN EC PO SCH (12:41)
[2017-02-17] MEDS: ZITHROMAX PO SCH (12:42)
[2017-02-17] MEDS: ZAROXOLYN PO SCH ×2 (12:42→21:10)
[2017-02-17] MEDS: MAG-OX PO SCH ×2 (12:43→21:10)
[2017-02-17] MEDS: cefTRIAXone 1 GM in NACL 0.9% 20 ML IV SCH (13:00)
--- NOTE | 2017-02-17 17:19 | Progress Note ---
Assessment and Plan Assessment and plan: 56 YO Male with Systolic CHF(EF 10%), ROJAS, HTN, DM, Metabolic Syndrome presents to ED for evaluation. Pt states that he has experienced shortness of breath for the past week, with worsening symptoms over the past 2 days. Pt acknowledges Orthopnea/PND as well as noncompliance with low sodium diet. Pt denies medication noncompliance, fever, chills, CP, Palpitations, Syncope, Hemoptysis, Productive cough, BRBPR, Leg swelling, calf pain, individual/family history of DVT/PE. Upon further questioning, the patient states that he had chest discomfort with deep breathing, which resolved but did not have "chest pain". Pt seen and evaluated in ED and found to be is distress, and experiencing hypoxemic respiratory failure. Pt placed on supplemental oxygen. Pt CXR consistent with Right pleural effusion complicated by pneumonia. Pt treated with Pneumonia protocol. Acute on Chronic Systolic congestive heart failure-Probably endstage Aspiration pneumonitis Diabetes mellitus with hyperglycemia Obesity HTN Generalized Anascar likely secondary to CHF B/L lower ext cellulitis with poor healing wound Right sided pleural effusion Mild to Moderate Protein calorie malnutrition Plan * Continue supportive care * Discussed with cardiology * Contiuue IV inotropic, metalazone * Strict I/O, Daily weight * Continue emperic antibiotics, patient is significantly anascar precluding fluids * Repeat Chest xray-show some improvement of continue to monitor intermittently. * Oxygen therapy with NPPIV if needed * Pulmonary consult, noted * continue insulin qhs * Miralone per cardiology * Lactic acidosis * compliance counselling provided * wound care consult * DVT/GI prophy * poor prognosis. plan of care discussed with patient and with financial services assistant History Interval history: Patient see and examined, in mild respiratory distress. Reports improvement. Denies any chest pain, nausea, vomiting or diarrhea. Again patient was admitted following acute respiratory failure secondary to noncompliance to medication. Hospitalist Physical - Physical exam Narrative exam: VITAL SIGNS: Reviewed. GENERAL: The patient appeared well nourished and normally developed. Vital signs as documented. HEAD: No signs of head trauma. EYES: Pupils are equal. Extraocular motions intact. EARS: Hearing grossly intact. MOUTH: Oropharynx is normal. NECK: No adenopathy, no JVD. CHEST: Chest with clear breath sounds bilaterally. No wheezes, rales, or rhonchi. CARDIAC: Regular rate and rhythm. S1 and S2, without murmurs, gallops, or rubs. VASCULAR: 2+ pitting edema. Peripheral pulses normal and equal in all extremities. ABDOMEN: Soft, without detectable tenderness. No sign of distention. No rebound or guarding, and no masses palpated. Bowel Sounds normal. MUSCULOSKELETAL: Good range of motion of all major joints. Extremities without clubbing, cyanosis. Generalized anasarca. NEUROLOGIC EXAM: Alert and oriented x 3. No focal sensory or strength deficits. Speech normal. Follows commands. PSYCHIATRIC: Mood normal. SKIN: No rash or lesions. - Constitutional Vitals: Temp Pulse Resp BP Pulse Ox 97.8 F 97 H 20 111/73 100 02/17/17 06:00 02/17/17 06:00 02/17/17 06:00 02/17/17 06:00 02/17/17 08:16 General appearance: Present: mild distress Results - Labs CBC & Chem 7: 02/14/17 05:17 02/17/17 06:48 Labs: Laboratory Last Values WBC 4.8 K/mm3 (4.5-11.0) 02/14/17 05:17 RBC 4.75 M/mm3 (3.65-5.03) 02/14/17 05:17 Hgb 14.0 gm/dl (11.8-15.2) 02/14/17 05:17 Hct 45.7 % (35.5-45.6) H 02/14/17 05:17 MCV 96 fl (84-94) H 02/14/17 05:17 MCH 30 pg (28-32) 02/14/17 05:17 MCHC 31 % (32-34) L 02/14/17 05:17 RDW 15.9 % (13.2-15.2) H 02/14/17 05:17 Plt Count 212 K/mm3 (140-440) 02/14/17 05:17 Lymph % (Auto) 18.7 % (13.4-35.0) 02/14/17 05:17 [place] % (Auto) 13.7 % (0.0-7.3) H 02/14/17 05:17 Eos % (Auto) 0.3 % (0.0-4.3) 02/14/17 05:17 Baso % (Auto) 0.4 % (0.0-1.8) 02/14/17 05:17 Lymph # 0.9 K/mm3 (1.2-5.4) L 02/14/17 05:17 [place] # 0.7 K/mm3 (0.0-0.8) 02/14/17 05:17 Eos # 0.0 K/mm3 (0.0-0.4) 02/14/17 05:17 Baso # 0.0 K/mm3 (0.0-0.1) 02/14/17 05:17 Seg Neutrophils % 66.9 % (40.0-70.0) 02/14/17 05:17 Seg Neutrophils # 3.2 K/mm3 (1.8-7.7) 02/14/17 05:17 Sodium 141 mmol/L (137-145) 02/17/17 06:48 Potassium 4.2 mmol/L (3.6-5.0) 02/17/17 06:48 Chloride 99.6 mmol/L (98-107) 02/17/17 06:48 Carbon Dioxide 30 mmol/L (22-30) 02/17/17 06:48 Anion Gap 16 mmol/L 02/17/17 06:48 BUN 34 mg/dL (9-20) H 02/17/17 06:48 Creatinine 1.0 mg/dL (0.8-1.5) 02/17/17 06:48 Estimated GFR > 60 ml/min 02/17/17 06:48 BUN/Creatinine Ratio 34 % 02/17/17 06:48 Glucose 191 mg/dL (75-100) H 02/17/17 06:48 POC Glucose 177 (70-105) H 02/17/17 13:02 Lactic Acid 2.40 mmol/L (0.7-2.0) H* 02/15/17 12:06 Calcium 8.9 mg/dL (8.4-10.2) 02/17/17 06:48 Troponin T 0.015 ng/mL (0.00-0.029) 02/14/17 05:17 NT-Pro-B Natriuret Pep 7647 pg/mL (0-900) H 02/14/17 05:17 - Imaging and Cardiology Chest x-ray: image reviewed (improvement in right pleural effusion)
[2017-02-17] MEDS: LEVEMIR SUB-Q SCH (21:06)
[2017-02-17] MEDS: MILRINONE-D5W 20 MG/100 ML 20 MG/100 ML BAG IV SCH (21:06)
[2017-02-18] MEDS: LASIX IV SCH ×2 (06:52→18:16)
[2017-02-18] MEDS: NOVOLOG SUB-Q SCH ×4 (08:30→22:40)
[2017-02-18] MEDS: MAG-OX PO SCH ×2 (09:25→22:40)
[2017-02-18] MEDS: ZAROXOLYN PO SCH ×2 (09:25→22:40)
[2017-02-18] MEDS: ZITHROMAX PO SCH (09:26)
[2017-02-18] MEDS: cefTRIAXone 1 GM in NACL 0.9% 20 ML IV SCH (09:27)
[2017-02-18] MEDS: HALFPRIN EC PO SCH (09:27)
--- NOTE | 2017-02-18 10:39 | Progress Note ---
Assessment and Plan Assessment and plan: Assessment and Plan 56 YO Male with Systolic CHF(EF 10%), ROJAS, HTN, DM, Metabolic Syndrome presents to ED for evaluation. Pt states that he has experienced shortness of breath for the past week, with worsening symptoms over the past 2 days. Pt acknowledges Orthopnea/PND as well as noncompliance with low sodium diet. Pt denies medication noncompliance, fever, chills, CP, Palpitations, Syncope, Hemoptysis, Productive cough, BRBPR, Leg swelling, calf pain, individual/family history of DVT/PE. Upon further questioning, the patient states that he had chest discomfort with deep breathing, which resolved but did not have "chest pain". Pt seen and evaluated in ED and found to be is distress, and experiencing hypoxemic respiratory failure. Pt placed on supplemental oxygen. Pt CXR consistent with Right pleural effusion complicated by pneumonia. Pt treated with Pneumonia protocol. Acute on Chronic Systolic congestive heart failure-Probably endstage Aspiration pneumonitis Diabetes mellitus with hyperglycemia Obesity HTN Generalized Anascar likely secondary to CHF B/L lower ext cellulitis with poor healing wound Right sided pleural effusion Mild to Moderate Protein calorie malnutrition Plan * Continue supportive care * Discussed with cardiology * Contiuue IV inotropic, metalazone * Strict I/O, Daily weight * Continue emperic antibiotics, patient is significantly anascar precluding fluids * Repeat Chest xray-show some improvement of continue to monitor intermittently. * Oxygen therapy with NPPIV if needed * Pulmonary consult, noted * continue insulin qhs * Milrinone per cardiology * Lactic acidosis * compliance counselling provided * wound care consult * DVT/GI prophy * poor prognosis. 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 History Interval history: SOB better Hospitalist Physical - Constitutional Vitals: Temp Pulse Resp BP Pulse Ox 97.5 F L 104 H 20 138/92 100 02/18/17 06:13 02/18/17 06:13 02/18/17 06:13 02/18/17 06:13 02/18/17 06:13 General appearance: Present: mild distress - Respiratory Respiratory: bilateral: CTA - Cardiovascular Heart rate: 76 Rhythm: regular - Extremities Extremities: no ischemia, pulses intact Peripheral Pulses: within normal limits - Abdominal General gastrointestinal: soft, non-tender, non-distended - Integumentary Integumentary: Present: clear - Psychiatric Psychiatric: appropriate mood/affect, intact judgment & insight, memory intact, cooperative Results - Labs CBC & Chem 7: 02/14/17 05:17 02/17/17 06:48 Labs: Laboratory Last Values WBC 4.8 K/mm3 (4.5-11.0) 02/14/17 05:17 RBC 4.75 M/mm3 (3.65-5.03) 02/14/17 05:17 Hgb 14.0 gm/dl (11.8-15.2) 02/14/17 05:17 Hct 45.7 % (35.5-45.6) H 02/14/17 05:17 MCV 96 fl (84-94) H 02/14/17 05:17 MCH 30 pg (28-32) 02/14/17 05:17 MCHC 31 % (32-34) L 02/14/17 05:17 RDW 15.9 % (13.2-15.2) H 02/14/17 05:17 Plt Count 212 K/mm3 (140-440) 02/14/17 05:17 Lymph % (Auto) 18.7 % (13.4-35.0) 02/14/17 05:17 [place] % (Auto) 13.7 % (0.0-7.3) H 02/14/17 05:17 Eos % (Auto) 0.3 % (0.0-4.3) 02/14/17 05:17 Baso % (Auto) 0.4 % (0.0-1.8) 02/14/17 05:17 Lymph # 0.9 K/mm3 (1.2-5.4) L 02/14/17 05:17 [place] # 0.7 K/mm3 (0.0-0.8) 02/14/17 05:17 Eos # 0.0 K/mm3 (0.0-0.4) 02/14/17 05:17 Baso # 0.0 K/mm3 (0.0-0.1) 02/14/17 05:17 Seg Neutrophils % 66.9 % (40.0-70.0) 02/14/17 05:17 Seg Neutrophils # 3.2 K/mm3 (1.8-7.7) 02/14/17 05:17 Sodium 141 mmol/L (137-145) 02/17/17 06:48 Potassium 4.2 mmol/L (3.6-5.0) 02/17/17 06:48 Chloride 99.6 mmol/L (98-107) 02/17/17 06:48 Carbon Dioxide 30 mmol/L (22-30) 02/17/17 06:48 Anion Gap 16 mmol/L 02/17/17 06:48 BUN 34 mg/dL (9-20) H 02/17/17 06:48 Creatinine 1.0 mg/dL (0.8-1.5) 02/17/17 06:48 Estimated GFR > 60 ml/min 02/17/17 06:48 BUN/Creatinine Ratio 34 % 02/17/17 06:48 Glucose 191 mg/dL (75-100) H 02/17/17 06:48 POC Glucose 338 (70-105) H 02/17/17 21:12 Lactic Acid 2.40 mmol/L (0.7-2.0) H* 02/15/17 12:06 Calcium 8.9 mg/dL (8.4-10.2) 02/17/17 06:48 Troponin T 0.015 ng/mL (0.00-0.029) 02/14/17 05:17 NT-Pro-B Natriuret Pep 7647 pg/mL (0-900) H 02/14/17 05:17
[2017-02-18] MEDS: MILRINONE-D5W 20 MG/100 ML 20 MG/100 ML BAG IV SCH (11:13)
--- NOTE | 2017-02-18 12:03 | Progress Note ---
Assessment and Plan Acute decompensated systolic heart failure NYHA class IV Non-ischemic cardiomyopathy, stage D Non-compliance with medical therapy Recommendations: Continue current management - continue IV milrinoone another 24-48 hours. Outpatient f/u with advanced heart failure at [facility] later this month as scheduled. Subjective Date of service: 02/18/17 Principal diagnosis: CHF Interval history: No cardiac complaints. Objective Vital Signs Temp Pulse Resp BP Pulse Ox 02/18/17 06:13 97.5 F L 104 H 20 138/92 100 02/18/17 00:21 97.5 F L 106 H 20 123/75 100 02/17/17 20:01 100 02/17/17 19:52 98.2 F 100 H 18 166/95 100 02/17/17 16:51 51 L 121/69 98 02/17/17 16:43 98.0 F 100 H 18 114/79 100 02/17/17 14:09 97.4 F L 102 H 18 102/70 100 - Physical Examination General: No Apparent Distress HEENT: Positive: PERRL Neck: Positive: neck supple Cardiac: Positive: Reg Rate and Rhythm Lungs: Positive: Decreased Breath Sounds Extremities: Absent: edema
--- NOTE | 2017-02-18 15:53 | Progress Note ---
Assessment and Plan 56 y/o male with systolic heart failure and right sided pleural effusion. 1. Continue supplemental O2 2. Will sign off Subjective Date of service: 02/18/17 Principal diagnosis: CHF Interval history: No acute events. Breathing stable. Still on Inotropic therapy. Objective Vital Signs - 12hr 02/18/17 02/18/17 02/18/17 06:13 08:04 11:45 Temperature 97.5 F L 97.4 F L 98.1 F Pulse Rate 104 H 98 H 94 H Respiratory 20 20 18 Rate Blood Pressure 138/92 98/63 107/73 O2 Sat by Pulse 100 100 100 Oximetry Constitutional: no acute distress, appears uncomfortable Eyes: non-icteric ENT: oropharynx moist Neck: supple Effort: mildly labored Ascultation: Right: diminished breath sounds (base), rales (base) Percussion: Right: dull, Left: not dull Tactile fremitus: Right: diminished Cardiovascular: regular rate and rhythm Gastrointestinal: normoactive bowel sounds Extremities: edema Neurologic: normal mental status, non-focal exam CBC and BMP: 02/14/17 05:17 02/17/17 06:48 Abnormal lab findings: Abnormal Labs 02/14/17 02/14/17 02/14/17 05:17 05:17 05:17 Hct 45.7 H MCV 96 H MCHC 31 L RDW 15.9 H [place] % (Auto) 13.7 H Lymph # 0.9 L Potassium 5.4 H Chloride 97.4 L Carbon Dioxide 21 L BUN 44 H Glucose 302 H POC Glucose Lactic Acid NT-Pro-B Natriuret Pep 7647 H 02/14/17 02/14/17 02/14/17 13:33 16:22 21:06 Hct MCV MCHC RDW [place] % (Auto) Lymph # Potassium Chloride Carbon Dioxide BUN Glucose POC Glucose 275 H 337 H Lactic Acid 2.50 H* NT-Pro-B Natriuret Pep 02/15/17 02/15/17 02/15/17 11:36 12:06 16:13 Hct MCV MCHC RDW [place] % (Auto) Lymph # Potassium Chloride Carbon Dioxide BUN Glucose POC Glucose 117 H 229 H Lactic Acid 2.40 H* NT-Pro-B Natriuret Pep 02/15/17 02/16/17 02/16/17 21:36 06:38 07:53 Hct MCV MCHC RDW [place] % (Auto) Lymph # Potassium Chloride Carbon Dioxide BUN 41 H Glucose 185 H POC Glucose 249 H 168 H Lactic Acid NT-Pro-B Natriuret Pep 02/16/17 02/16/17 02/16/17 12:45 16:46 21:50 Hct MCV MCHC RDW [place] % (Auto) Lymph # Potassium Chloride Carbon Dioxide BUN Glucose POC Glucose 162 H 194 H 168 H Lactic Acid NT-Pro-B Natriuret Pep 02/17/17 02/17/17 02/17/17 06:48 09:24 13:02 Hct MCV MCHC RDW [place] % (Auto) Lymph # Potassium Chloride Carbon Dioxide BUN 34 H Glucose 191 H POC Glucose 180 H 177 H Lactic Acid NT-Pro-B Natriuret Pep 02/17/17 02/17/17 02/18/17 16:47 21:12 08:08 Hct MCV MCHC RDW [place] % (Auto) Lymph # Potassium Chloride Carbon Dioxide BUN Glucose POC Glucose 242 H 338 H 122 H Lactic Acid NT-Pro-B Natriuret Pep
[2017-02-18] MEDS: LEVEMIR SUB-Q SCH (22:39)
[2017-02-19] MEDS: TYLENOL PO PRN ×2 (02:11→10:07)
[2017-02-19] MEDS: MILRINONE-D5W 20 MG/100 ML 20 MG/100 ML BAG IV SCH ×2 (02:14→13:26)
[2017-02-19] MEDS: LASIX IV SCH ×2 (06:47→17:32)
[2017-02-19] MEDS: NOVOLOG SUB-Q SCH ×4 (09:55→22:20)
[2017-02-19] MEDS: HALFPRIN EC PO SCH (09:56)
[2017-02-19] MEDS: ZAROXOLYN PO SCH ×2 (09:57→22:20)
[2017-02-19] MEDS: MAG-OX PO SCH ×2 (09:57→22:20)
[2017-02-19] MEDS: ZITHROMAX PO SCH (10:02)
[2017-02-19] MEDS: cefTRIAXone 1 GM in NACL 0.9% 20 ML IV SCH (10:02)
--- NOTE | 2017-02-19 12:04 | Progress Note ---
Assessment and Plan Acute decompensated systolic heart failure NYHA class IV Non-ischemic cardiomyopathy, stage D Non-compliance with medical therapy Recommendations: Continue current management - continue IV milrinoone another 24 hours. Outpatient f/u with advanced heart failure at [facility] later this month as scheduled. Subjective Date of service: 02/19/17 Principal diagnosis: CHF Interval history: Dyspnea is improving. Objective Vital Signs Temp Pulse Resp BP Pulse Ox 02/19/17 09:38 95 02/19/17 07:38 97.4 F L 20 122/101 02/19/17 04:50 97.9 F 105 H 20 123/74 95 02/18/17 23:34 97.4 F L 106 H 18 115/78 99 02/18/17 20:55 98.5 F 103 H 20 105/66 98 02/18/17 17:42 101 H 104/71 100 - Physical Examination General: No Apparent Distress HEENT: Positive: PERRL Neck: Positive: neck supple Cardiac: Positive: Reg Rate and Rhythm Lungs: Positive: clear to auscultation Extremities: Absent: edema
--- NOTE | 2017-02-19 17:28 | Progress Note ---
Assessment and Plan Acute on Chronic Systolic congestive heart failure-NYHA IV Aspiration pneumonitis Diabetes mellitus with hyperglycemia Obesity HTN Generalized Anascar likely secondary to CHF B/L lower ext cellulitis with poor healing wound Right sided pleural effusion Mild to Moderate Protein calorie malnutrition Plan * Contiuue IV inotropic, metalazone * Strict I/O, Daily weight * Continue emperic antibiotics, * Repeat Chest xray-show some improvement of continue to monitor intermittently. * Oxygen therapy with NPPIV if needed * Pulmonary consult, noted * continue insulin qhs * Milrinone per cardiology * Lactic acidosis * ordered ECHO * compliance counselling provided * wound care consult * DVT/GI prophy * poor prognosis. plan of care discussed with patient Subjective Date of service: 02/19/17 Principal diagnosis: Acute on chronic respiratory failure, CHF, Pneumonia Interval history: Shortness of breath improving. No ore cough. Denies any chest pain Objective - Constitutional Vitals: Vital Signs - 12hr 02/19/17 02/19/17 02/19/17 07:38 09:38 13:00 Temperature 97.4 F L 98.2 F Pulse Rate 102 H Respiratory 20 22 Rate Blood Pressure 122/101 Blood Pressure 119/88 [Left] O2 Sat by Pulse 95 96 Oximetry General appearance: Present: no acute distress, well-nourished - EENT Eyes: PERRL, EOM intact - Neck Neck: supple, normal ROM - Respiratory Respiratory effort: normal Respiratory: bilateral: diminished - Cardiovascular Rhythm: regular Heart Sounds: Present: S1 & S2. Absent: gallop, rub Extremities: pulses intact, No edema, normal color, Full ROM - Gastrointestinal General gastrointestinal: Present: soft, non-tender, non-distended, normal bowel sounds - Integumentary Integumentary: clear, warm, dry - Musculoskeletal Musculoskeletal: 1, strength equal bilaterally - Neurologic Neurologic: moves all extremities - Psychiatric Psychiatric: memory intact, appropriate mood/affect, intact judgment & insight - Labs CBC & Chem 7: 02/14/17 05:17 02/17/17 06:48 Labs: Abnormal lab results 02/18/17 02/18/17 02/19/17 Range/Units 17:46 21:56 07:40 POC Glucose 181 H 164 H 131 H (70-105) 02/19/17 Range/Units 12:20 POC Glucose 158 H (70-105)
[2017-02-19] MEDS: LEVEMIR SUB-Q SCH (22:21)
[2017-02-20] MEDS: MILRINONE-D5W 20 MG/100 ML 20 MG/100 ML BAG IV SCH ×2 (02:15→16:53)
[2017-02-20] MEDS: LASIX IV SCH ×2 (06:14→18:37)
[2017-02-20 07:14] LABS: Basophils % (Auto) 0.8 % (0.0-1.8); Eosinophils % (Auto) 1.3 % (0.0-4.3); Hemoglobin 12.4 gm/dl (11.8-15.2); Mean Corpuscular HGB Conc 33 % (32-34); Mean Corpuscular Hemoglobin 31 pg (28-32); Mean Corpuscular Volume 94 fl (84-94); Platelet Count 130 K/mm3 (140-440); Red Blood Count 4.04 M/mm3 (3.65-5.03); Red Cell Distribution Width 15.5 % (13.2-15.2)
[2017-02-20 07:28] LABS: Alanine Aminotransferase 23 units/L (7-56); Albumin 3.3 g/dL (3.9-5); Albumin/Globulin Ratio 0.8 %; Alkaline Phosphatase 149 units/L (35-129); Anion Gap 14 mmol/L; BUN/Creatinine Ratio 29; Blood Urea Nitrogen 29 mg/dL (9-20); Carbon Dioxide 33 mmol/L (22-30); Glucose 222 mg/dL (75-100); Potassium 4.4 mmol/L (3.6-5.0); Sodium 139 mmol/L (137-145); Total Protein 7.6 g/dL (6.3-8.2)
[2017-02-20] MEDS: ZESTRIL PO SCH (10:38)
[2017-02-20] MEDS: ZITHROMAX PO SCH (10:38)
[2017-02-20] MEDS: HALFPRIN EC PO SCH (10:38)
[2017-02-20] MEDS: MAG-OX PO SCH ×2 (10:38→22:36)
[2017-02-20] MEDS: COREG PO SCH ×2 (10:39→22:36)
[2017-02-20] MEDS: ZAROXOLYN PO SCH ×2 (10:39→22:36)
[2017-02-20] MEDS: cefTRIAXone 1 GM in NACL 0.9% 20 ML IV SCH (10:40)
[2017-02-20] MEDS: NOVOLOG SUB-Q SCH ×3 (10:40→18:40)
--- NOTE | 2017-02-20 12:03 | Progress Note ---
Assessment and Plan Acute systolic heart failure secondary to noncompliance with medical therapy Right pleural effusion Non-ischemic cardiomyopathy Non-obstructive CAD LVEF 10% by [facility] 11/2016 DM Obstructive sleep apnea Hypertension Lactic acidosis Recommendations: LUE doppler for r/o DVT. Continue medical therapy for systolic heart failure. Strict I's and O's. Sodium/fluid restriction. Daily weight. Subjective Date of service: 02/20/17 Principal diagnosis: Acute on chronic respiratory failure, CHF, Pneumonia Interval history: Patient reports his breathing has improved. Reports left hand edema. Continues on IV milrinone therapy. Objective Vital Signs Temp Pulse Resp BP BP Pulse Ox 02/20/17 06:15 97.5 F L 111 H 20 127/80 100 02/19/17 20:49 96 02/19/17 20:34 97.6 F 109 H 18 135/91 97 02/19/17 15:17 102 H 121/89 98 02/19/17 13:00 98.2 F 102 H 22 119/88 96 - Physical Examination General: No Apparent Distress HEENT: Positive: PERRL Cardiac: Positive: Reg Rate and Rhythm Lungs: Positive: Decreased Breath Sounds Neuro: Positive: Grossly Intact Extremities: Present: +1 Edema - Labs and Meds Cardiac Enzymes 02/20/17 Range/Units 06:54 AST 34 (5-40) units/L CBC 02/20/17 Range/Units 06:54 WBC 4.0 L (4.5-11.0) K/mm3 RBC 4.04 (3.65-5.03) M/mm3 Hgb 12.4 (11.8-15.2) gm/dl Hct 38.0 (35.5-45.6) % Plt Count 130 L (140-440) K/mm3 Lymph # 0.6 L (1.2-5.4) K/mm3 [place] # 0.5 (0.0-0.8) K/mm3 Eos # 0.1 (0.0-0.4) K/mm3 Baso # 0.0 (0.0-0.1) K/mm3 Comprehensive Metabolic Panel 02/20/17 Range/Units 06:54 Sodium 139 (137-145) mmol/L Potassium 4.4 (3.6-5.0) mmol/L Chloride 96.0 L (98-107) mmol/L Carbon Dioxide 33 H (22-30) mmol/L BUN 29 H (9-20) mg/dL Creatinine 1.0 (0.8-1.5) mg/dL Glucose 222 H (75-100) mg/dL Calcium 9.0 (8.4-10.2) mg/dL AST 34 (5-40) units/L ALT 23 (7-56) units/L Alkaline Phosphatase 149 H (35-129) units/L Total Protein 7.6 (6.3-8.2) g/dL Albumin 3.3 L (3.9-5) g/dL
--- NOTE | 2017-02-20 20:33 | Progress Note ---
Assessment and Plan Acute on Chronic Systolic congestive heart failure-NYHA IV Aspiration pneumonitis Diabetes mellitus with hyperglycemia Obesity HTN Generalized Anascar likely secondary to CHF B/L lower ext cellulitis with poor healing wound. Doppler result Pending Right sided pleural effusion Mild to Moderate Protein calorie malnutrition Plan * Contiuue IV inotropic, metalazone * Strict I/O, Daily weight * Continue emperic antibiotics, * Repeat Chest xray-show some improvement of continue to monitor intermittently. * Oxygen therapy with NPPIV if needed * Pulmonary consult, noted * continue insulin qhs * Milrinone per cardiology * Lactic acidosis * ECHO -showed 10-15 % LVEF with severe systolic dysfunction * compliance counselling provided * wound care consult * DVT/GI prophy * Poor prognosis. Plan of care discussed with patient Subjective Date of service: 02/20/17 Principal diagnosis: Acute on chronic respiratory failure, CHF, Pneumonia Interval history: Shortness of breath improving. No ore cough. Denies any chest pain Objective - Constitutional Vitals: Vital Signs - 12hr 02/20/17 02/20/17 02/20/17 08:34 16:49 20:18 Temperature 97.9 F Pulse Rate 107 H 92 H 94 H Respiratory 18 Rate Blood Pressure 128/85 O2 Sat by Pulse 99 98 100 Oximetry General appearance: Present: no acute distress, well-nourished - EENT Eyes: PERRL, EOM intact - Neck Neck: supple, normal ROM - Respiratory Respiratory effort: normal Respiratory: bilateral: CTA - Cardiovascular Rhythm: regular Heart Sounds: Present: S1 & S2. Absent: gallop, rub Extremities: pulses intact, No edema, normal color, Full ROM - Gastrointestinal General gastrointestinal: Present: soft, non-tender, non-distended, normal bowel sounds - Integumentary Integumentary: clear, warm, dry - Musculoskeletal Musculoskeletal: 1, strength equal bilaterally - Neurologic Neurologic: moves all extremities - Psychiatric Psychiatric: memory intact, appropriate mood/affect, intact judgment & insight - Labs CBC & Chem 7: 02/20/17 06:54 02/20/17 06:54 Labs: Abnormal lab results 02/19/17 02/20/17 02/20/17 Range/Units 21:36 06:54 06:54 WBC 4.0 L (4.5-11.0) K/mm3 RDW 15.5 H (13.2-15.2) % Plt Count 130 L (140-440) K/mm3 [place] % (Auto) 13.6 H (0.0-7.3) % Lymph # 0.6 L (1.2-5.4) K/mm3 Chloride 96.0 L (98-107) mmol/L Carbon Dioxide 33 H (22-30) mmol/L BUN 29 H (9-20) mg/dL Glucose 222 H (75-100) mg/dL POC Glucose 257 H (70-105) Alkaline Phosphatase 149 H (35-129) units/L Albumin 3.3 L (3.9-5) g/dL 02/20/17 Range/Units 16:56 WBC (4.5-11.0) K/mm3 RDW (13.2-15.2) % Plt Count (140-440) K/mm3 [place] % (Auto) (0.0-7.3) % Lymph # (1.2-5.4) K/mm3 Chloride (98-107) mmol/L Carbon Dioxide (22-30) mmol/L BUN (9-20) mg/dL Glucose (75-100) mg/dL POC Glucose 286 H (70-105) Alkaline Phosphatase (35-129) units/L Albumin (3.9-5) g/dL
[2017-02-20] MEDS: LOVENOX SUB-Q SCH (22:36)
[2017-02-21] MEDS: TYLENOL PO PRN ×3 (00:21→21:05)
[2017-02-21] MEDS: LEVEMIR SUB-Q SCH ×2 (00:22→21:43)
[2017-02-21] MEDS: NOVOLOG SUB-Q SCH ×5 (00:23→21:43)
[2017-02-21] MEDS: LASIX IV SCH ×2 (06:34→17:32)
[2017-02-21 07:18] LABS: Basophils % (Auto) 0.9 % (0.0-1.8); Hematocrit 35.3 % (35.5-45.6); Hemoglobin 11.5 gm/dl (11.8-15.2); Mean Corpuscular HGB Conc 33 % (32-34); Mean Corpuscular Hemoglobin 30 pg (28-32); Mean Corpuscular Volume 94 fl (84-94); Platelet Count 120 K/mm3 (140-440); Red Blood Count 3.78 M/mm3 (3.65-5.03); Red Cell Distribution Width 15.5 % (13.2-15.2); White Blood Count 3.8 K/mm3 (4.5-11.0)
[2017-02-21 07:38] LABS: Alanine Aminotransferase 20 units/L (7-56); Albumin 3.2 g/dL (3.9-5); Albumin/Globulin Ratio 0.9 %; Alkaline Phosphatase 133 units/L (35-129); Anion Gap 16 mmol/L; BUN/Creatinine Ratio 36; Blood Urea Nitrogen 32 mg/dL (9-20); Calcium 8.7 mg/dL (8.4-10.2); Carbon Dioxide 31 mmol/L (22-30); Chloride 95.8 mmol/L (98-107); Glucose 259 mg/dL (75-100); Potassium 4.1 mmol/L (3.6-5.0); Sodium 139 mmol/L (137-145); Total Protein 6.9 g/dL (6.3-8.2)
--- NOTE | 2017-02-21 08:13 | Vascular Lab Report ---
LEFT UPPER EXTREMITY VENOUS DUPLEX: REASON FOR EXAM: Edema of the left upper extremity COMMENTS ON THE LEFT: Superficial thrombosis is noted in the cephalic vein over the bicep. No evidence of deep venous thrombosis.. The remaining veins visualized are freely compressible without evidence of internal echogenicity. Spontaneous and phasic flow is present proximally. COMMENTS ON THE RIGHT: The subclavian and internal jugular veins are free of thrombus. IMPRESSION: No evidence of acute or chronic deep venous thrombosis in the left upper extremity. Superficial thrombophlebitis in the cephalic vein.
[2017-02-21] MEDS: LOVENOX SUB-Q SCH ×2 (10:26→21:07)
[2017-02-21] MEDS: COREG PO SCH ×2 (10:26→21:05)
[2017-02-21] MEDS: HALFPRIN EC PO SCH (10:26)
[2017-02-21] MEDS: ZESTRIL PO SCH (10:27)
[2017-02-21] MEDS: ZAROXOLYN PO SCH ×2 (10:27→21:47)
[2017-02-21] MEDS: MAG-OX PO SCH ×2 (10:27→21:04)
[2017-02-21] MEDS: ZITHROMAX PO SCH (10:27)
[2017-02-21] MEDS: cefTRIAXone 1 GM in NACL 0.9% 20 ML IV SCH (11:02)
--- NOTE | 2017-02-21 12:25 | XRay Report ---
ROUTINE CHEST, TWO VIEWS: HISTORY: Pleural effusion. Small right pleural effusion has nearly resolved since 02/17/17. Mild improvement in cardiomegaly and pulmonary venous congestion is demonstrated. No consolidation or pneumothorax is identified. IMPRESSION: Improvement in CHF as described.
--- NOTE | 2017-02-21 13:54 | Progress Note ---
Assessment and Plan Acute systolic heart failure secondary to noncompliance with medical therapy Right pleural effusion Non-ischemic cardiomyopathy Non-obstructive CAD LVEF 10% by [facility] 11/2016 DM Obstructive sleep apnea Hypertension Lactic acidosis Recommendations: Continue medical therapy for systolic heart failure. Strict I's and O's. Sodium/fluid restriction. Daily weight. Subjective Date of service: 02/21/17 Principal diagnosis: Acute on chronic respiratory failure, CHF, Pneumonia Interval history: Patient reports his breathing has improved. Edema slowly improving. Continues on IV milrinone therapy. Objective Vital Signs Temp Pulse Resp BP BP Pulse Ox 02/21/17 12:40 82 93/61 100 02/21/17 10:27 89 108/91 02/21/17 10:26 89 108/91 02/21/17 08:57 97.7 F 89 18 108/91 98 02/21/17 06:35 20 02/21/17 05:57 97.7 F 93 H 18 116/78 98 02/21/17 01:40 98.3 F 95 H 16 102/66 98 02/21/17 01:00 98.3 F 95 H 16 102/66 02/20/17 20:18 97.9 F 94 H 18 128/85 100 02/20/17 16:49 92 H 98 - Physical Examination General: No Apparent Distress HEENT: Positive: PERRL Cardiac: Positive: Reg Rate and Rhythm Neuro: Positive: Grossly Intact Extremities: Present: +1 Edema - Labs and Meds Cardiac Enzymes 02/21/17 Range/Units 07:00 AST 28 (5-40) units/L CBC 02/21/17 Range/Units 07:00 WBC 3.8 L (4.5-11.0) K/mm3 RBC 3.78 (3.65-5.03) M/mm3 Hgb 11.5 L (11.8-15.2) gm/dl Hct 35.3 L (35.5-45.6) % Plt Count 120 L (140-440) K/mm3 Lymph # 0.6 L (1.2-5.4) K/mm3 [place] # 0.6 (0.0-0.8) K/mm3 Eos # 0.0 (0.0-0.4) K/mm3 Baso # 0.0 (0.0-0.1) K/mm3 Comprehensive Metabolic Panel 02/21/17 Range/Units 07:00 Sodium 139 (137-145) mmol/L Potassium 4.1 (3.6-5.0) mmol/L Chloride 95.8 L (98-107) mmol/L Carbon Dioxide 31 H (22-30) mmol/L BUN 32 H (9-20) mg/dL Creatinine 0.9 (0.8-1.5) mg/dL Glucose 259 H (75-100) mg/dL Calcium 8.7 (8.4-10.2) mg/dL AST 28 (5-40) units/L ALT 20 (7-56) units/L Alkaline Phosphatase 133 H (35-129) units/L Total Protein 6.9 (6.3-8.2) g/dL Albumin 3.2 L (3.9-5) g/dL
[2017-02-21] MEDS: MILRINONE-D5W 20 MG/100 ML 20 MG/100 ML BAG IV SCH (15:18)
--- NOTE | 2017-02-21 23:54 | Progress Note ---
Assessment and Plan Assessment and plan: 56 YO Male with Systolic CHF(EF 10%), ROJAS, HTN, DM, Metabolic Syndrome presents to ED for evaluation. Pt states that he has experienced shortness of breath for the past week, with worsening symptoms over the past 2 days. Pt acknowledges Orthopnea/PND as well as noncompliance with low sodium diet. Pt denies medication noncompliance, fever, chills, CP, Palpitations, Syncope, Hemoptysis, Productive cough, BRBPR, Leg swelling, calf pain, individual/family history of DVT/PE. Upon further questioning, the patient states that he had chest discomfort with deep breathing, which resolved but did not have "chest pain". Pt seen and evaluated in ED and found to be is distress, and experiencing hypoxemic respiratory failure. Pt placed on supplemental oxygen. Pt CXR consistent with Right pleural effusion complicated by pneumonia. Pt treated with Pneumonia protocol. Acute on Chronic Systolic congestive heart failure-Probably endstage- EF 10-15% Aspiration pneumonitis Diabetes mellitus with hyperglycemia non ischemic cardiomyopathy with non obstructive CAD Obesity HTN Generalized Anascar likely secondary to CHF B/L lower ext cellulitis with poor healing wound Right sided pleural effusion Mild to Moderate Protein calorie malnutrition Plan * Continue supportive care * Discussed with cardiology * Contiuue IV inotropic, metalazone * Strict I/O, Daily weight * Continue emperic antibiotics, patient is significantly anascar precluding fluids * Repeat Chest xray-show some improvement of continue to monitor intermittently. * Oxygen therapy with NPPIV if needed * Pulmonary consult, noted * continue insulin qhs * Miralone per cardiology * Lactic acidosis * compliance counselling provided * wound care consult * DVT/GI prophy * poor prognosis. plan of care discussed with patient and with dosier operator History Interval history: Patient see and examined, in mild respiratory distress. Reports improvement. Denies any chest pain, nausea, vomiting or diarrhea. Hospitalist Physical - Physical exam Narrative exam: VITAL SIGNS: Reviewed. GENERAL: The patient appeared well nourished and normally developed. Vital signs as documented. HEAD: No signs of head trauma. EYES: Pupils are equal. Extraocular motions intact. EARS: Hearing grossly intact. MOUTH: Oropharynx is normal. NECK: No adenopathy, no JVD. CHEST: Chest with clear breath sounds bilaterally. No wheezes, rales, or rhonchi. CARDIAC: Regular rate and rhythm. S1 and S2, without murmurs, gallops, or rubs. VASCULAR: 2+ pitting edema. Peripheral pulses normal and equal in all extremities. ABDOMEN: Soft, without detectable tenderness. No sign of distention. No rebound or guarding, and no masses palpated. Bowel Sounds normal. MUSCULOSKELETAL: Good range of motion of all major joints. Extremities without clubbing, cyanosis. Generalized anasarca. NEUROLOGIC EXAM: Alert and oriented x 3. No focal sensory or strength deficits. Speech normal. Follows commands. PSYCHIATRIC: Mood normal. SKIN: No rash or lesions. - Constitutional Vitals: Temp Pulse Resp BP Pulse Ox 97.7 F 92 H 18 106/63 97 02/21/17 08:57 02/21/17 19:30 02/21/17 19:29 02/21/17 19:29 02/21/17 19:30 General appearance: Present: no acute distress, well-nourished Results - Labs CBC & Chem 7: 02/22/17 06:41 02/22/17 06:41 Labs: Laboratory Last Values WBC 3.8 K/mm3 (4.5-11.0) L 02/21/17 07:00 RBC 3.78 M/mm3 (3.65-5.03) 02/21/17 07:00 Hgb 11.5 gm/dl (11.8-15.2) L 02/21/17 07:00 Hct 35.3 % (35.5-45.6) L 02/21/17 07:00 MCV 94 fl (84-94) 02/21/17 07:00 MCH 30 pg (28-32) 02/21/17 07:00 MCHC 33 % (32-34) 02/21/17 07:00 RDW 15.5 % (13.2-15.2) H 02/21/17 07:00 Plt Count 120 K/mm3 (140-440) L 02/21/17 07:00 Lymph % (Auto) 16.9 % (13.4-35.0) 02/21/17 07:00 [place] % (Auto) 14.7 % (0.0-7.3) H 02/21/17 07:00 Eos % (Auto) 1.0 % (0.0-4.3) 02/21/17 07:00 Baso % (Auto) 0.9 % (0.0-1.8) 02/21/17 07:00 Lymph # 0.6 K/mm3 (1.2-5.4) L 02/21/17 07:00 [place] # 0.6 K/mm3 (0.0-0.8) 02/21/17 07:00 Eos # 0.0 K/mm3 (0.0-0.4) 02/21/17 07:00 Baso # 0.0 K/mm3 (0.0-0.1) 02/21/17 07:00 Seg Neutrophils % 66.5 % (40.0-70.0) 02/21/17 07:00 Seg Neutrophils # 2.5 K/mm3 (1.8-7.7) 02/21/17 07:00 Sodium 139 mmol/L (137-145) 02/21/17 07:00 Potassium 4.1 mmol/L (3.6-5.0) 02/21/17 07:00 Chloride 95.8 mmol/L (98-107) L 02/21/17 07:00 Carbon Dioxide 31 mmol/L (22-30) H 02/21/17 07:00 Anion Gap 16 mmol/L 02/21/17 07:00 BUN 32 mg/dL (9-20) H 02/21/17 07:00 Creatinine 0.9 mg/dL (0.8-1.5) 02/21/17 07:00 Estimated GFR > 60 ml/min 02/21/17 07:00 BUN/Creatinine Ratio 36 % 02/21/17 07:00 Glucose 259 mg/dL (75-100) H 02/21/17 07:00 POC Glucose 293 (70-105) H 02/21/17 21:34 Lactic Acid 2.40 mmol/L (0.7-2.0) H* 02/15/17 12:06 Calcium 8.7 mg/dL (8.4-10.2) 02/21/17 07:00 Magnesium 1.90 mg/dL (1.7-2.3) 02/20/17 06:54 Total Bilirubin 0.80 mg/dL (0.1-1.2) 02/21/17 07:00 AST 28 units/L (5-40) 02/21/17 07:00 ALT 20 units/L (7-56) 02/21/17 07:00 Alkaline Phosphatase 133 units/L (35-129) H 02/21/17 07:00 Troponin T 0.015 ng/mL (0.00-0.029) 02/14/17 05:17 NT-Pro-B Natriuret Pep 7647 pg/mL (0-900) H 02/14/17 05:17 Total Protein 6.9 g/dL (6.3-8.2) 02/21/17 07:00 Albumin 3.2 g/dL (3.9-5) L 02/21/17 07:00 Albumin/Globulin Ratio 0.9 % 02/21/17 07:00
[2017-02-22] MEDS: MILRINONE-D5W 20 MG/100 ML 20 MG/100 ML BAG IV SCH ×2 (01:24→19:41)
[2017-02-22] MEDS: LASIX IV SCH ×2 (06:03→19:36)
[2017-02-22 06:53] LABS: Hematocrit 34.7 % (35.5-45.6); Hemoglobin 11.3 gm/dl (11.8-15.2); Mean Corpuscular HGB Conc 33 % (32-34); Mean Corpuscular Hemoglobin 30 pg (28-32); Mean Corpuscular Volume 93 fl (84-94); Platelet Count 114 K/mm3 (140-440); Red Blood Count 3.74 M/mm3 (3.65-5.03); Red Cell Distribution Width 15.2 % (13.2-15.2); White Blood Count 3.2 K/mm3 (4.5-11.0)
[2017-02-22 07:11] LABS: Alanine Aminotransferase 20 units/L (7-56); Albumin 3.2 g/dL (3.9-5); Albumin/Globulin Ratio 0.8 %; Alkaline Phosphatase 135 units/L (35-129); Anion Gap 13 mmol/L; BUN/Creatinine Ratio 32; Blood Urea Nitrogen 29 mg/dL (9-20); Calcium 8.5 mg/dL (8.4-10.2); Carbon Dioxide 31 mmol/L (22-30); Chloride 97.5 mmol/L (98-107); Glucose 176 mg/dL (75-100); Potassium 3.9 mmol/L (3.6-5.0); Sodium 138 mmol/L (137-145)
[2017-02-22] MEDS: NOVOLOG SUB-Q SCH ×4 (07:57→22:10)
[2017-02-22 08:07] LABS: Anisocytosis 1+; Blastocytes % (Manual) 0 %; Eosinophils % (Manual) 0 % (0.0-4.3); Poikilocytosis 1+
[2017-02-22 08:08] LABS: Diff Status Complete; Elliptocytes Few; Hypochromasia 1+; Large Platelets Rare; Ovalocytes 1+; Platelet Estimate Appears Decreased; Target Cells 1+; Tear Drop Cells Rare
--- NOTE | 2017-02-22 11:41 | Progress Note ---
Assessment and Plan Acute decompensated systolic heart failure NYHA class IV Improving CHF with resolution of the right sided pleural effusion Non-ischemic cardiomyopathy, stage D Non-compliance with medical therapy Recommendations: Continue current management Discussed compliance with patient extensively Subjective Date of service: 02/22/17 Principal diagnosis: Acute on chronic respiratory failure, CHF, Pneumonia Interval history: Patient is doing better Edema is improving Objective Vital Signs Temp Pulse Resp BP Pulse Ox 02/22/17 04:36 85 18 102/66 96 02/22/17 00:22 98.4 F 02/22/17 00:05 88 18 103/61 97 02/21/17 19:30 92 H 97 02/21/17 19:29 92 H 18 106/63 97 02/21/17 15:45 84 20 111/72 100 02/21/17 12:40 82 93/61 100 - Physical Examination General: No Apparent Distress HEENT: Positive: PERRL Neck: Positive: neck supple Cardiac: Positive: Reg Rate and Rhythm Lungs: Positive: Decreased Breath Sounds Neuro: Positive: Grossly Intact Extremities: Present: +1 Edema - Labs and Meds Cardiac Enzymes 02/22/17 Range/Units 06:41 AST 27 (5-40) units/L CBC 02/22/17 Range/Units 06:41 WBC 3.2 L (4.5-11.0) K/mm3 RBC 3.74 (3.65-5.03) M/mm3 Hgb 11.3 L (11.8-15.2) gm/dl Hct 34.7 L (35.5-45.6) % Plt Count 114 L (140-440) K/mm3 Comprehensive Metabolic Panel 02/22/17 Range/Units 06:41 Sodium 138 (137-145) mmol/L Potassium 3.9 (3.6-5.0) mmol/L Chloride 97.5 L (98-107) mmol/L Carbon Dioxide 31 H (22-30) mmol/L BUN 29 H (9-20) mg/dL Creatinine 0.9 (0.8-1.5) mg/dL Glucose 176 H (75-100) mg/dL Calcium 8.5 (8.4-10.2) mg/dL AST 27 (5-40) units/L ALT 20 (7-56) units/L Alkaline Phosphatase 135 H (35-129) units/L Total Protein 7.0 (6.3-8.2) g/dL Albumin 3.2 L (3.9-5) g/dL
[2017-02-22] MEDS: COREG PO SCH ×2 (11:49→22:11)
[2017-02-22] MEDS: HALFPRIN EC PO SCH (11:50)
[2017-02-22] MEDS: LOVENOX SUB-Q SCH ×2 (11:51→22:11)
[2017-02-22] MEDS: MAG-OX PO SCH ×2 (11:51→22:11)
[2017-02-22] MEDS: ZITHROMAX PO SCH (11:52)
[2017-02-22] MEDS: ZAROXOLYN PO SCH ×2 (11:52→22:11)
[2017-02-22] MEDS: ZESTRIL PO SCH (11:54)
[2017-02-22] MEDS: NEURONTIN PO SCH ×2 (14:00→19:37)
[2017-02-22] MEDS: cefTRIAXone 1 GM in NACL 0.9% 20 ML IV SCH (19:39)
[2017-02-22] MEDS: LEVEMIR SUB-Q SCH (22:10)
[2017-02-22] MEDS: TYLENOL PO PRN (22:11)
[2017-02-23] MEDS: MILRINONE-D5W 20 MG/100 ML 20 MG/100 ML BAG IV SCH ×2 (06:41→16:51)
[2017-02-23] MEDS: LASIX IV SCH ×2 (06:42→18:06)
--- NOTE | 2017-02-23 07:40 | Progress Note ---
Assessment and Plan Assessment and plan: 56 YO Male with Systolic CHF(EF 10%), ROJAS, HTN, DM, Metabolic Syndrome presents to ED for evaluation. Pt states that he has experienced shortness of breath for the past week, with worsening symptoms over the past 2 days. Pt acknowledges Orthopnea/PND as well as noncompliance with low sodium diet. Pt denies medication noncompliance, fever, chills, CP, Palpitations, Syncope, Hemoptysis, Productive cough, BRBPR, Leg swelling, calf pain, individual/family history of DVT/PE. Upon further questioning, the patient states that he had chest discomfort with deep breathing, which resolved but did not have "chest pain". Pt seen and evaluated in ED and found to be is distress, and experiencing hypoxemic respiratory failure. Pt placed on supplemental oxygen. Pt CXR consistent with Right pleural effusion complicated by pneumonia. Pt treated with Pneumonia protocol. Acute on Chronic Systolic congestive heart failure-Probably endstage- EF 10-15% Aspiration pneumonitis Diabetes mellitus with hyperglycemia non ischemic cardiomyopathy with non obstructive CAD Obesity HTN Generalized Anascar likely secondary to CHF B/L lower ext cellulitis with poor healing wound Right sided pleural effusion Mild to Moderate Protein calorie malnutrition Plan * Continue supportive care * Discussed with cardiology * Continue IV inotropic, metalazone * Strict I/O, Daily weight * Continue emperic antibiotics, patient is significantly anascar precluding fluids * Repeat Chest xray-show some improvement of continue to monitor intermittently. * Oxygen therapy with NPPIV if needed * Pulmonary consult, noted * continue insulin qhs * Miralone per cardiology * Lactic acidosis * compliance counselling provided * wound care consult * DVT/GI prophy * poor prognosis. 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 Reports improvement. Denies any chest pain, nausea, vomiting or diarrhea. Hospitalist Physical - Physical exam Narrative exam: VITAL SIGNS: Reviewed. GENERAL: The patient appeared well nourished and normally developed. Vital signs as documented. HEAD: No signs of head trauma. EYES: Pupils are equal. Extraocular motions intact. EARS: Hearing grossly intact. MOUTH: Oropharynx is normal. NECK: No adenopathy, no JVD. CHEST: Chest with clear breath sounds bilaterally. No wheezes, rales, or rhonchi. CARDIAC: Regular rate and rhythm. S1 and S2, without murmurs, gallops, or rubs. VASCULAR: 2+ pitting edema. Peripheral pulses normal and equal in all extremities. ABDOMEN: Soft, without detectable tenderness. No sign of distention. No rebound or guarding, and no masses palpated. Bowel Sounds normal. MUSCULOSKELETAL: Good range of motion of all major joints. Extremities without clubbing, cyanosis. Generalized anasarca. NEUROLOGIC EXAM: Alert and oriented x 3. No focal sensory or strength deficits. Speech normal. Follows commands. PSYCHIATRIC: Mood normal. SKIN: No rash or lesions. - Constitutional Vitals: Temp Pulse Resp BP Pulse Ox 97.8 F 82 20 98/55 99 02/23/17 03:33 02/23/17 03:33 02/23/17 03:33 02/23/17 03:33 02/23/17 03:33 General appearance: Present: no acute distress, well-nourished Results - Labs CBC & Chem 7: 02/22/17 06:41 02/22/17 06:41 Labs: Laboratory Last Values WBC 3.2 K/mm3 (4.5-11.0) L 02/22/17 06:41 RBC 3.74 M/mm3 (3.65-5.03) 02/22/17 06:41 Hgb 11.3 gm/dl (11.8-15.2) L 02/22/17 06:41 Hct 34.7 % (35.5-45.6) L 02/22/17 06:41 MCV 93 fl (84-94) 02/22/17 06:41 MCH 30 pg (28-32) 02/22/17 06:41 MCHC 33 % (32-34) 02/22/17 06:41 RDW 15.2 % (13.2-15.2) 02/22/17 06:41 Plt Count 114 K/mm3 (140-440) L 02/22/17 06:41 Lymph % (Auto) 16.9 % (13.4-35.0) 02/21/17 07:00 [place] % (Auto) Varnish Inspector 02/22/17 06:41 Eos % (Auto) 1.0 % (0.0-4.3) 02/21/17 07:00 Baso % (Auto) 0.9 % (0.0-1.8) 02/21/17 07:00 Lymph # 0.6 K/mm3 (1.2-5.4) L 02/21/17 07:00 [place] # 0.6 K/mm3 (0.0-0.8) 02/21/17 07:00 Eos # 0.0 K/mm3 (0.0-0.4) 02/21/17 07:00 Baso # 0.0 K/mm3 (0.0-0.1) 02/21/17 07:00 Add Manual Diff Complete 02/22/17 06:41 Total Counted 100 02/22/17 06:41 Seg Neutrophils % 66.5 % (40.0-70.0) 02/21/17 07:00 Seg Neuts % (Manual) 71.0 % (40.0-70.0) H 02/22/17 06:41 Band Neutrophils % 0 % 02/22/17 06:41 Lymphocytes % (Manual) 24.0 % (13.4-35.0) 02/22/17 06:41 Reactive Lymphs % (Man) 0 % 02/22/17 06:41 Monocytes % (Manual) 3.0 % (0.0-7.3) 02/22/17 06:41 Eosinophils % (Manual) 0 % (0.0-4.3) 02/22/17 06:41 Basophils % (Manual) 2.0 % (0.0-1.8) H 02/22/17 06:41 Metamyelocytes % 0 % 02/22/17 06:41 Myelocytes % 0 % 02/22/17 06:41 Promyelocytes % 0 % 02/22/17 06:41 Blast Cells % 0 % 02/22/17 06:41 Nucleated RBC % Not Reportable 02/22/17 06:41 Seg Neutrophils # 2.5 K/mm3 (1.8-7.7) 02/21/17 07:00 Seg Neutrophils # Man 2.3 K/mm3 (1.8-7.7) 02/22/17 06:41 Band Neutrophils # 0.0 K/mm3 02/22/17 06:41 Lymphocytes # (Manual) 0.8 K/mm3 (1.2-5.4) L 02/22/17 06:41 Abs React Lymphs (Man) 0.0 K/mm3 02/22/17 06:41 Monocytes # (Manual) 0.1 K/mm3 (0.0-0.8) 02/22/17 06:41 Eosinophils # (Manual) 0.0 K/mm3 (0.0-0.4) 02/22/17 06:41 Basophils # (Manual) 0.1 K/mm3 (0.0-0.1) 02/22/17 06:41 Metamyelocytes # 0.0 K/mm3 02/22/17 06:41 Myelocytes # 0.0 K/mm3 02/22/17 06:41 Promyelocytes # 0.0 K/mm3 02/22/17 06:41 Blast Cells # 0.0 K/mm3 02/22/17 06:41 WBC Morphology Not Reportable 02/22/17 06:41 Hypersegmented Neuts Not Reportable 02/22/17 06:41 Hyposegmented Neuts Not Reportable 02/22/17 06:41 Hypogranular Neuts Not Reportable 02/22/17 06:41 Smudge Cells Not Reportable 02/22/17 06:41 Toxic Granulation Not Reportable 02/22/17 06:41 Toxic Vacuolation Not Reportable 02/22/17 06:41 Dohle Bodies Not Reportable 02/22/17 06:41 Pelger-Huet Anomaly Not Reportable 02/22/17 06:41 Marlyn Rods Not Reportable 02/22/17 06:41 Platelet Estimate Appears decreased 02/22/17 06:41 Clumped Platelets Not Reportable 02/22/17 06:41 Plt Clumps, EDTA Not Reportable 02/22/17 06:41 Large Platelets Rare 02/22/17 06:41 Giant Platelets Not Reportable 02/22/17 06:41 Platelet Satelliting Not Reportable 02/22/17 06:41 Plt Morphology Comment Not Reportable 02/22/17 06:41 RBC Morphology Not Reportable 02/22/17 06:41 Dimorphic RBCs Not Reportable 02/22/17 06:41 Polychromasia Not Reportable 02/22/17 06:41 Hypochromasia 1+ 02/22/17 06:41 Poikilocytosis 1+ 02/22/17 06:41 Anisocytosis 1+ 02/22/17 06:41 Microcytosis Not Reportable 02/22/17 06:41 Macrocytosis Not Reportable 02/22/17 06:41 Spherocytes Not Reportable 02/22/17 06:41 Pappenheimer Bodies Not Reportable 02/22/17 06:41 Sickle Cells Not Reportable 02/22/17 06:41 Target Cells 1+ 02/22/17 06:41 Tear Drop Cells Rare 02/22/17 06:41 Ovalocytes 1+ 02/22/17 06:41 Helmet Cells Not Reportable 02/22/17 06:41 [place] Bodies Not Reportable 02/22/17 06:41 [place] Rings Not Reportable 02/22/17 06:41 [place] Cells Not Reportable 02/22/17 06:41 Bite Cells Not Reportable 02/22/17 06:41 Crenated Cell Not Reportable 02/22/17 06:41 Elliptocytes Few 02/22/17 06:41 Acanthocytes (Spur) Not Reportable 02/22/17 06:41 Rouleaux Not Reportable 02/22/17 06:41 Hemoglobin C Crystals Not Reportable 02/22/17 06:41 Schistocytes Not Reportable 02/22/17 06:41 Malaria parasites Not Reportable 02/22/17 06:41 Matthew Bodies Not Reportable 02/22/17 06:41 Hem Pathologist Commnt No 02/22/17 06:41 Sodium 138 mmol/L (137-145) 02/22/17 06:41 Potassium 3.9 mmol/L (3.6-5.0) 02/22/17 06:41 Chloride 97.5 mmol/L (98-107) L 02/22/17 06:41 Carbon Dioxide 31 mmol/L (22-30) H 02/22/17 06:41 Anion Gap 13 mmol/L 02/22/17 06:41 BUN 29 mg/dL (9-20) H 02/22/17 06:41 Creatinine 0.9 mg/dL (0.8-1.5) 02/22/17 06:41 Estimated GFR > 60 ml/min 02/22/17 06:41 BUN/Creatinine Ratio 32 % 02/22/17 06:41 Glucose 176 mg/dL (75-100) H 02/22/17 06:41 POC Glucose 228 (70-105) H 02/22/17 21:13 Lactic Acid 2.40 mmol/L (0.7-2.0) H* 02/15/17 12:06 Calcium 8.5 mg/dL (8.4-10.2) 02/22/17 06:41 Magnesium 1.90 mg/dL (1.7-2.3) 02/20/17 06:54 Total Bilirubin 0.80 mg/dL (0.1-1.2) 02/22/17 06:41 AST 27 units/L (5-40) 02/22/17 06:41 ALT 20 units/L (7-56) 02/22/17 06:41 Alkaline Phosphatase 135 units/L (35-129) H 02/22/17 06:41 Troponin T 0.015 ng/mL (0.00-0.029) 02/14/17 05:17 NT-Pro-B Natriuret Pep 7647 pg/mL (0-900) H 02/14/17 05:17 Total Protein 7.0 g/dL (6.3-8.2) 02/22/17 06:41 Albumin 3.2 g/dL (3.9-5) L 02/22/17 06:41 Albumin/Globulin Ratio 0.8 % 02/22/17 06:41
[2017-02-23] MEDS: HALFPRIN EC PO SCH (10:01)
[2017-02-23] MEDS: NEURONTIN PO SCH ×3 (10:01→21:43)
[2017-02-23] MEDS: MAG-OX PO SCH ×2 (10:01→21:43)
[2017-02-23] MEDS: LOVENOX SUB-Q SCH ×2 (10:01→21:42)
[2017-02-23] MEDS: ZITHROMAX PO SCH (10:01)
[2017-02-23] MEDS: cefTRIAXone 1 GM in NACL 0.9% 20 ML IV SCH (10:02)
[2017-02-23] MEDS: NOVOLOG SUB-Q SCH ×4 (10:03→21:44)
[2017-02-23] MEDS: COREG PO SCH ×2 (10:03→21:44)
[2017-02-23] MEDS: ZAROXOLYN PO SCH ×2 (10:04→21:43)
[2017-02-23] MEDS: ZESTRIL PO SCH (10:04)
--- NOTE | 2017-02-23 11:23 | Progress Note ---
Assessment and Plan - Patient Problems (1) CHF (congestive heart failure) Current Visit: Yes Status: Acute Plan to address problem: Continue medical therapy for acute on chronic systolic heart failure. (2) Pleural effusion Current Visit: Yes Status: Acute Plan to address problem: Patient's right pleural effusion has been managed by pulmonary, and is resolving on conservative management. Subjective Date of service: 02/23/17 Principal diagnosis: Acute on chronic respiratory failure, CHF, Pneumonia Interval history: Patient looks and feels better, no new cardiac complaints. Objective Vital Signs Temp Pulse Resp Resp BP Pulse Ox 02/23/17 10:04 82 98/65 02/23/17 10:03 82 98/65 02/23/17 03:33 97.8 F 82 20 98/55 99 02/22/17 23:48 99.2 F 93 H 20 96/72 98 02/22/17 23:11 20 02/22/17 22:14 20 02/22/17 22:11 95 H 20 112/84 02/22/17 20:33 95 H 02/22/17 20:10 20 99 02/22/17 20:07 97.6 F 95 H 20 112/84 97 02/22/17 16:50 98.4 F 91 H 18 93/55 95 02/22/17 12:10 98.2 F 86 18 101/71 100 - Physical Examination General: No Apparent Distress HEENT: Positive: PERRL Neck: Positive: neck supple Cardiac: Positive: Reg Rate and Rhythm Lungs: Positive: Decreased Breath Sounds Neuro: Positive: Grossly Intact Abdomen: Positive: Soft Skin: Positive: Clear Extremities: Present: edema (trace)
--- NOTE | 2017-02-23 18:25 | Progress Note ---
Assessment and Plan Assessment and plan: 56 YO Male with Systolic CHF(EF 10%), ROJAS, HTN, DM, Metabolic Syndrome presents to ED for evaluation. Pt states that he has experienced shortness of breath for the past week, with worsening symptoms over the past 2 days. Pt acknowledges Orthopnea/PND as well as noncompliance with low sodium diet. Pt denies medication noncompliance, fever, chills, CP, Palpitations, Syncope, Hemoptysis, Productive cough, BRBPR, Leg swelling, calf pain, individual/family history of DVT/PE. Upon further questioning, the patient states that he had chest discomfort with deep breathing, which resolved but did not have "chest pain". Pt seen and evaluated in ED and found to be is distress, and experiencing hypoxemic respiratory failure. Pt placed on supplemental oxygen. Pt CXR consistent with Right pleural effusion complicated by pneumonia. Pt treated with Pneumonia protocol. Acute on Chronic Systolic congestive heart failure-Probably endstage- EF 10-15% Aspiration pneumonitis Diabetes mellitus with hyperglycemia non ischemic cardiomyopathy with non obstructive CAD Obesity HTN Generalized Anascar likely secondary to CHF B/L lower ext cellulitis with poor healing wound Right sided pleural effusion Mild to Moderate Protein calorie malnutrition Plan * Continue supportive care * Discussed with cardiology * Continue IV inotropic, metalazone * No evidence of DVT IN UPPER EXT * Strict I/O, Daily weight * Continue emperic antibiotics, patient is significantly anascar precluding fluids * Repeat Chest xray-show GOOD improvement of continue to monitor intermittently. * Oxygen therapy with NPPIV if needed * Pulmonary consult, noted * continue insulin qhs * Miralone per cardiology * Lactic acidosis * compliance counselling provided * wound care consult * DVT/GI prophy * poor prognosis. 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 Reports improvement. Denies any chest pain, nausea, vomiting or diarrhea. Hospitalist Physical - Physical exam Narrative exam: VITAL SIGNS: Reviewed. GENERAL: The patient appeared well nourished and normally developed. Vital signs as documented. HEAD: No signs of head trauma. EYES: Pupils are equal. Extraocular motions intact. EARS: Hearing grossly intact. MOUTH: Oropharynx is normal. NECK: No adenopathy, no JVD. CHEST: Chest with clear breath sounds bilaterally. No wheezes, rales, or rhonchi. CARDIAC: Regular rate and rhythm. S1 and S2, without murmurs, gallops, or rubs. VASCULAR: 2+ pitting edema. Peripheral pulses normal and equal in all extremities. ABDOMEN: Soft, without detectable tenderness. No sign of distention. No rebound or guarding, and no masses palpated. Bowel Sounds normal. MUSCULOSKELETAL: Good range of motion of all major joints. Extremities without clubbing, cyanosis. Generalized anasarca. NEUROLOGIC EXAM: Alert and oriented x 3. No focal sensory or strength deficits. Speech normal. Follows commands. PSYCHIATRIC: Mood normal. SKIN: No rash or lesions. - Constitutional Vitals: Temp Pulse Resp BP Pulse Ox 97.8 F 82 20 98/65 100 02/23/17 03:33 02/23/17 10:04 02/23/17 10:00 02/23/17 10:04 02/23/17 10:00 General appearance: Present: no acute distress, well-nourished Results - Labs CBC & Chem 7: 02/22/17 06:41 02/22/17 06:41 Labs: Laboratory Last Values WBC 3.2 K/mm3 (4.5-11.0) L 02/22/17 06:41 RBC 3.74 M/mm3 (3.65-5.03) 02/22/17 06:41 Hgb 11.3 gm/dl (11.8-15.2) L 02/22/17 06:41 Hct 34.7 % (35.5-45.6) L 02/22/17 06:41 MCV 93 fl (84-94) 02/22/17 06:41 MCH 30 pg (28-32) 02/22/17 06:41 MCHC 33 % (32-34) 02/22/17 06:41 RDW 15.2 % (13.2-15.2) 02/22/17 06:41 Plt Count 114 K/mm3 (140-440) L 02/22/17 06:41 Lymph % (Auto) 16.9 % (13.4-35.0) 02/21/17 07:00 [place] % (Auto) Sheet Catcher 02/22/17 06:41 Eos % (Auto) 1.0 % (0.0-4.3) 02/21/17 07:00 Baso % (Auto) 0.9 % (0.0-1.8) 02/21/17 07:00 Lymph # 0.6 K/mm3 (1.2-5.4) L 02/21/17 07:00 [place] # 0.6 K/mm3 (0.0-0.8) 02/21/17 07:00 Eos # 0.0 K/mm3 (0.0-0.4) 02/21/17 07:00 Baso # 0.0 K/mm3 (0.0-0.1) 02/21/17 07:00 Add Manual Diff Complete 02/22/17 06:41 Total Counted 100 02/22/17 06:41 Seg Neutrophils % 66.5 % (40.0-70.0) 02/21/17 07:00 Seg Neuts % (Manual) 71.0 % (40.0-70.0) H 02/22/17 06:41 Band Neutrophils % 0 % 02/22/17 06:41 Lymphocytes % (Manual) 24.0 % (13.4-35.0) 02/22/17 06:41 Reactive Lymphs % (Man) 0 % 02/22/17 06:41 Monocytes % (Manual) 3.0 % (0.0-7.3) 02/22/17 06:41 Eosinophils % (Manual) 0 % (0.0-4.3) 02/22/17 06:41 Basophils % (Manual) 2.0 % (0.0-1.8) H 02/22/17 06:41 Metamyelocytes % 0 % 02/22/17 06:41 Myelocytes % 0 % 02/22/17 06:41 Promyelocytes % 0 % 02/22/17 06:41 Blast Cells % 0 % 02/22/17 06:41 Nucleated RBC % Not Reportable 02/22/17 06:41 Seg Neutrophils # 2.5 K/mm3 (1.8-7.7) 02/21/17 07:00 Seg Neutrophils # Man 2.3 K/mm3 (1.8-7.7) 02/22/17 06:41 Band Neutrophils # 0.0 K/mm3 02/22/17 06:41 Lymphocytes # (Manual) 0.8 K/mm3 (1.2-5.4) L 02/22/17 06:41 Abs React Lymphs (Man) 0.0 K/mm3 02/22/17 06:41 Monocytes # (Manual) 0.1 K/mm3 (0.0-0.8) 02/22/17 06:41 Eosinophils # (Manual) 0.0 K/mm3 (0.0-0.4) 02/22/17 06:41 Basophils # (Manual) 0.1 K/mm3 (0.0-0.1) 02/22/17 06:41 Metamyelocytes # 0.0 K/mm3 02/22/17 06:41 Myelocytes # 0.0 K/mm3 02/22/17 06:41 Promyelocytes # 0.0 K/mm3 02/22/17 06:41 Blast Cells # 0.0 K/mm3 02/22/17 06:41 WBC Morphology Not Reportable 02/22/17 06:41 Hypersegmented Neuts Not Reportable 02/22/17 06:41 Hyposegmented Neuts Not Reportable 02/22/17 06:41 Hypogranular Neuts Not Reportable 02/22/17 06:41 Smudge Cells Not Reportable 02/22/17 06:41 Toxic Granulation Not Reportable 02/22/17 06:41 Toxic Vacuolation Not Reportable 02/22/17 06:41 Dohle Bodies Not Reportable 02/22/17 06:41 Pelger-Huet Anomaly Not Reportable 02/22/17 06:41 Marlyn Rods Not Reportable 02/22/17 06:41 Platelet Estimate Appears decreased 02/22/17 06:41 Clumped Platelets Not Reportable 02/22/17 06:41 Plt Clumps, EDTA Not Reportable 02/22/17 06:41 Large Platelets Rare 02/22/17 06:41 Giant Platelets Not Reportable 02/22/17 06:41 Platelet Satelliting Not Reportable 02/22/17 06:41 Plt Morphology Comment Not Reportable 02/22/17 06:41 RBC Morphology Not Reportable 02/22/17 06:41 Dimorphic RBCs Not Reportable 02/22/17 06:41 Polychromasia Not Reportable 02/22/17 06:41 Hypochromasia 1+ 02/22/17 06:41 Poikilocytosis 1+ 02/22/17 06:41 Anisocytosis 1+ 02/22/17 06:41 Microcytosis Not Reportable 02/22/17 06:41 Macrocytosis Not Reportable 02/22/17 06:41 Spherocytes Not Reportable 02/22/17 06:41 Pappenheimer Bodies Not Reportable 02/22/17 06:41 Sickle Cells Not Reportable 02/22/17 06:41 Target Cells 1+ 02/22/17 06:41 Tear Drop Cells Rare 02/22/17 06:41 Ovalocytes 1+ 02/22/17 06:41 Helmet Cells Not Reportable 02/22/17 06:41 [place] Bodies Not Reportable 02/22/17 06:41 [place] Rings Not Reportable 02/22/17 06:41 [place] Cells Not Reportable 02/22/17 06:41 Bite Cells Not Reportable 02/22/17 06:41 Crenated Cell Not Reportable 02/22/17 06:41 Elliptocytes Few 02/22/17 06:41 Acanthocytes (Spur) Not Reportable 02/22/17 06:41 Rouleaux Not Reportable 02/22/17 06:41 Hemoglobin C Crystals Not Reportable 02/22/17 06:41 Schistocytes Not Reportable 02/22/17 06:41 Malaria parasites Not Reportable 02/22/17 06:41 Matthew Bodies Not Reportable 02/22/17 06:41 Hem Pathologist Commnt No 02/22/17 06:41 Sodium 138 mmol/L (137-145) 02/22/17 06:41 Potassium 3.9 mmol/L (3.6-5.0) 02/22/17 06:41 Chloride 97.5 mmol/L (98-107) L 02/22/17 06:41 Carbon Dioxide 31 mmol/L (22-30) H 02/22/17 06:41 Anion Gap 13 mmol/L 02/22/17 06:41 BUN 29 mg/dL (9-20) H 02/22/17 06:41 Creatinine 0.9 mg/dL (0.8-1.5) 02/22/17 06:41 Estimated GFR > 60 ml/min 02/22/17 06:41 BUN/Creatinine Ratio 32 % 02/22/17 06:41 Glucose 176 mg/dL (75-100) H 02/22/17 06:41 POC Glucose 186 (70-105) H 02/23/17 11:50 Lactic Acid 2.40 mmol/L (0.7-2.0) H* 02/15/17 12:06 Calcium 8.5 mg/dL (8.4-10.2) 02/22/17 06:41 Magnesium 1.90 mg/dL (1.7-2.3) 02/20/17 06:54 Total Bilirubin 0.80 mg/dL (0.1-1.2) 02/22/17 06:41 AST 27 units/L (5-40) 02/22/17 06:41 ALT 20 units/L (7-56) 02/22/17 06:41 Alkaline Phosphatase 135 units/L (35-129) H 02/22/17 06:41 Troponin T 0.015 ng/mL (0.00-0.029) 02/14/17 05:17 NT-Pro-B Natriuret Pep 7647 pg/mL (0-900) H 02/14/17 05:17 Total Protein 7.0 g/dL (6.3-8.2) 02/22/17 06:41 Albumin 3.2 g/dL (3.9-5) L 02/22/17 06:41 Albumin/Globulin Ratio 0.8 % 02/22/17 06:41
[2017-02-23] MEDS: LEVEMIR SUB-Q SCH (21:45)
[2017-02-24] MEDS: LASIX IV SCH (06:32)
[2017-02-24 08:27] VITALS: BP 108/65
[2017-02-24] MEDS: NOVOLOG SUB-Q SCH ×2 (08:46→14:09)
[2017-02-24] MEDS: NEURONTIN PO SCH (08:46)
--- NOTE | 2017-02-24 09:39 | Progress Note ---
Assessment and Plan Acute systolic heart failure secondary to noncompliance with medical therapy Right pleural effusion Non-ischemic cardiomyopathy Non-obstructive CAD LVEF 10% by [facility] 11/2016 DM Obstructive sleep apnea Hypertension Lactic acidosis Recommendations: Continue medical therapy for systolic heart failure. Sodium/fluid restriction. Ok for discharge home, cardiac tracey. Outpatient f/u with advanced heart failure clinic at [place] as scheduled. Subjective Date of service: 02/24/17 Principal diagnosis: Acute on chronic respiratory failure, CHF, Pneumonia Interval history: Trial of IV milrinone completed. Patient reports he is feeling better. Wants to go home. Objective Vital Signs Temp Pulse Resp Resp BP BP Pulse Ox 02/24/17 08:25 98.3 F 84 18 108/65 98 02/24/17 05:03 97.7 F 88 18 104/64 99 02/23/17 23:40 98.0 F 96 H 18 103/66 96 02/23/17 22:00 80 18 02/23/17 19:10 98.2 F 90 18 119/77 100 02/23/17 17:28 92 H 18 110/76 100 02/23/17 10:04 82 98/65 02/23/17 10:03 82 98/65 02/23/17 10:00 79 20 20 100 - Physical Examination General: No Apparent Distress HEENT: Positive: PERRL Cardiac: Positive: Reg Rate and Rhythm Lungs: Positive: Decreased Breath Sounds Neuro: Positive: Grossly Intact Extremities: Present: +1 Edema
[2017-02-24] MEDS: LOVENOX SUB-Q SCH (10:14)
[2017-02-24] MEDS: MAG-OX PO SCH (10:15)
[2017-02-24] MEDS: ZITHROMAX PO SCH (10:16)
[2017-02-24] MEDS: HALFPRIN EC PO SCH (10:16)
[2017-02-24] MEDS: ZESTRIL PO SCH (10:17)
[2017-02-24] MEDS: ZAROXOLYN PO SCH (10:18)
[2017-02-24] MEDS: COREG PO SCH (10:18)
--- NOTE | 2017-02-24 10:19 | Discharge Summary ---
Providers - Providers Date of Admission: 02/14/17 13:50 Attending physician: CRISTIAN ELDRIDGE MD 02/14/17 20:19 Consult to Wound/ET Nurse [CONS] Routine Reason For Exam: wound eval Primary care physician: FRONT DESK OFFICER Hospitalization Reason for admission: congestive heart failure Condition: Stable Hospital course: 6 YO Male with Systolic CHF(EF 10%), ROJAS, HTN, DM, Metabolic Syndrome presents to ED for evaluation. Pt states that he has experienced shortness of breath for the past week, with worsening symptoms over the past 2 days. Pt acknowledges Orthopnea/PND as well as noncompliance with low sodium diet. Pt denies medication noncompliance, fever, chills, CP, Palpitations, Syncope, Hemoptysis, Productive cough, BRBPR, Leg swelling, calf pain, individual/family history of DVT/PE. Upon further questioning, the patient states that he had chest discomfort with deep breathing, which resolved but did not have "chest pain". Pt seen and evaluated in ED and found to be is distress, and experiencing hypoxemic respiratory failure. Pt placed on supplemental oxygen. Pt CXR consistent with Right pleural effusion complicated by pneumonia. Pt treated with Pneumonia protocol. And also a congestive heart failure protocol. He improved remarkably with initiation of amiodarone. This also was seen by wound care for bilateral lower extremity wounds which was dressed and recommended to follow up outpatient with them. We did stress compliance with this patient verbalized understanding that he understands the gravity of his illness. Dietary recommendation was also done. We did have some adjustments to his medication which will be going home on. Ultrasound of his upper extremity did not reveal any DVTs Discharge diagnoses Acute on Chronic Systolic congestive heart failure-Probably endstage- EF 10-15% Aspiration pneumonitis Diabetes mellitus with hyperglycemia non ischemic cardiomyopathy with non obstructive CAD Obesity HTN Generalized Anascar likely secondary to CHF B/L lower ext cellulitis with poor healing wound Right sided pleural effusion Mild to Moderate Protein calorie malnutrition Disposition: - TO HOME OR SELFCARE Time spent for discharge: 35 mins Core Measure Documentation - Palliative Care Palliative Care/ Comfort Measures: Not Applicable - Core Measures Any of the following diagnoses?: heart failure - VTE Discharge Requirements Deep Vein Thrombosis/Pulmonary Embolism Present on Admission: No - Heart Failure Discharge Requirements ERNIE/ARB for LVSD if EF <40%: Yes Beta molly at discharge: Yes Exam - Physical Exam Narrative exam: VITAL SIGNS: Reviewed. GENERAL: The patient appeared well nourished and normally developed. Vital signs as documented. HEAD: No signs of head trauma. EYES: Pupils are equal. Extraocular motions intact. EARS: Hearing grossly intact. MOUTH: Oropharynx is normal. NECK: No adenopathy, no JVD. CHEST: Chest with clear breath sounds bilaterally. No wheezes, rales, or rhonchi. CARDIAC: Regular rate and rhythm. S1 and S2, without murmurs, gallops, or rubs. VASCULAR: 2+ pitting edema. Peripheral pulses normal and equal in all extremities. ABDOMEN: Soft, without detectable tenderness. No sign of distention. No rebound or guarding, and no masses palpated. Bowel Sounds normal. MUSCULOSKELETAL: Good range of motion of all major joints. Extremities without clubbing, cyanosis. Generalized anasarca. NEUROLOGIC EXAM: Alert and oriented x 3. No focal sensory or strength deficits. Speech normal. Follows commands. PSYCHIATRIC: Mood normal. SKIN: Bilateral lower extremity excoriations ulcerated lesion. - Constitutional Vitals: Temp Pulse Resp BP Pulse Ox 98.3 F 84 18 108/65 98 02/24/17 08:25 02/24/17 08:25 02/24/17 08:25 02/24/17 08:25 02/24/17 08:25 Plan Activity: advance as tolerated, fall precautions Diet: low salt, diabetic Wound: per wound nurse instructions Special Instructions: restrict fluid intake to (1000cc/day), record daily weights, record daily BP diary, record blood sugar diary, other (follow-up the wound care clinic) Follow up with: CONSTANTINO RIOS MD [Primary Care Provider] - 3-5 Days NEO HECTOR MD [Staff Physician] - 7 Days Prescriptions: Azithromycin [Zithromax TAB] 500 mg PO QDAY #3 tablet Carvedilol [Coreg] 6.25 mg PO BID #60 tablet Gabapentin [Neurontin] 300 mg PO TID #90 capsule Lisinopril [Zestril TAB] 5 mg PO QDAY #30 tablet Metolazone [Zaroxolyn] 5 mg PO BID #60 tablet
[2017-02-24] MEDS: cefTRIAXone 1 GM in NACL 0.9% 20 ML IV SCH (10:26)
== END 2017-02-24 14:45 | disposition home or self-care (01) | DRG 291 ==
LOC: ED 05:02 → 3A 13:50 → 4A 02-15 16:31
PROVIDERS: ADMIT Internal Medicine; ATTEND Internal Medicine
DX: I11.0 Hypertensive heart disease with heart failure (principal); J96.01 Acute respiratory failure with hypoxia; J69.0 Pneumonitis due to inhalation of food and vomit; E44.0 Moderate protein-calorie malnutrition; L03.116 Cellulitis of left lower limb; L03.115 Cellulitis of right lower limb; I50.23 Acute on chronic systolic (congestive) heart failure; I42.9 Cardiomyopathy, unspecified; I25.10 Atherosclerotic heart disease of native coronary artery without angina pectoris; I27.20 Pulmonary hypertension, unspecified; Z79.82 Long term (current) use of aspirin; Z83.3 Family history of diabetes mellitus; Z82.49 Family history of ischemic heart disease and other diseases of the circulatory system; Z91.19 Patient's noncompliance with other medical treatment and regimen; G47.33 Obstructive sleep apnea (adult) (pediatric); E66.9 Obesity, unspecified; Z68.31 Body mass index [BMI] 31.0-31.9, adult; E11.65 Type 2 diabetes mellitus with hyperglycemia
CPT/HCPCS: 36415; 71010; 71020; 80048; 80053; 82140; 82962; 83735; 83880; 84132; 84484; 85007; 85025; 87040; 93005; 93010; 93306; 94760; 96374; A9270-GY; J0696; J1650; J1815; J1818; J1940; J2260

== ENCOUNTER 2018-04-18 14:23 | Emergency (ER) | payer OTHER ==
--- NOTE | 2018-04-18 15:20 | Emergency Department Report ---
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
[2018-04-18 15:41] LABS: Basophils # (Auto) 0.1 K/mm3 (0.0-0.1); Eosinophils % (Auto) 0.5 % (0.0-4.3); Hematocrit 39.5 % (35.5-45.6); Hemoglobin 12.5 gm/dl (11.8-15.2); Lymphocytes # (Auto) 0.9 K/mm3 (1.2-5.4); Lymphocytes % (Auto) 16.8 % (13.4-35.0); Mean Corpuscular HGB Conc 32 % (32-34); Mean Corpuscular Volume 90 fl (84-94); Monocytes # (Auto) 0.7 K/mm3 (0.0-0.8); Monocytes % (Auto) 13.1 % (0.0-7.3); Platelet Count 262 K/mm3 (140-440); Red Blood Count 4.41 M/mm3 (3.65-5.03); Red Cell Distribution Width 18.5 % (13.2-15.2)
[2018-04-18 15:45] LABS: Bilirubin,Urine NEG (Negative); Blood,Urine NEG (Negative); Color,Urine Yellow (Yellow); Hyaline Casts,Urine 3 /LPF; Mucus,Urine FEW /HPF
[2018-04-18 15:52] LABS: INR 1.28 (0.87-1.13); Partial Thromboplastin Time 28.2 Sec. (24.2-36.6)
[2018-04-18 15:57] LABS: Calcium 9.5 mg/dL (8.4-10.2)
[2018-04-18] MEDS ORDERED: LASIX IV ONE (16:50)
--- NOTE | 2018-04-18 17:00 | Emergency Department Report ---
ED Shortness of Breath HPI - General Chief Complaint: Dyspnea/Respdistress Stated Complaint: SOB/SWELLING IN LEGS Time Seen by Provider: 04/18/18 15:15 Source: patient Mode of arrival: Ambulatory Limitations: No Limitations - History of Present Illness Initial Comments: CC: "I want the swelling off." Mr. Piper is a 57 yo male with hx of systolic CHF (EF10%), DM, HTN, OSHwho presents with swelling in legs and dyspnea for the past few weeks. Denies pain. Also concerned for chronic hernia. He is afraid the hernia will turn to cancer. No fever. No cough. 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 Complaint: shortness of breath -: Gradual, week(s) (several) Severity: moderate Consistency: constant Improves With: nothing Worsens With: lying flat, exertion Known History Of: congestive heart failure Associated Symptoms: lower abdominal swelling - Related Data Home Medications Medication Instructions Recorded Confirmed Last Taken Aspirin [Adult Low Dose Aspirin EC] 81 mg PO DAILY 12/02/16 02/14/17 01/05/17 AtorvaSTATin [Lipitor] 20 mg PO BID 12/02/16 02/14/17 01/05/17 Magnesium Oxide [Mag-Ox] 400 mg PO BID 12/02/16 02/14/17 01/05/17 Potassium Chloride [Klor-Con 10] 20 meq PO BID 12/02/16 02/14/17 01/05/17 glipiZIDE [glipiZIDE ER] 5 mg PO QAM 12/02/16 02/14/17 01/05/17 metFORMIN [Glucophage] 1,000 mg PO BID 12/02/16 02/14/17 01/05/17 metOLazone [Metolazone] 5 mg PO BID 12/02/16 02/14/17 01/05/17 Furosemide [Lasix TAB] 40 mg PO BID 02/14/17 02/14/17 Unknown Spironolactone [Aldactone] 25 mg PO QDAY 02/14/17 02/14/17 Unknown Previous Rx's Medication Instructions Recorded Last Taken Type Azithromycin [Zithromax TAB] 500 mg PO QDAY #3 tablet 02/24/17 Unknown Rx Carvedilol [Coreg] 6.25 mg PO BID #60 tablet 02/24/17 Unknown Rx Gabapentin [Neurontin] 300 mg PO TID #90 capsule 02/24/17 Unknown Rx Lisinopril [Zestril TAB] 5 mg PO QDAY #30 tablet 02/24/17 Unknown Rx metOLazone [Zaroxolyn] 5 mg PO BID #60 tablet 02/24/17 Unknown Rx Allergies Allergy/AdvReac Type Severity Reaction Status Date / Time No Known Allergies Allergy Verified 01/06/17 08:41 ED Review of Systems ROS: Stated complaint: SOB/SWELLING IN LEGS Other details as noted in HPI Comment: All other systems reviewed and negative Constitutional: denies: fever, malaise Respiratory: denies: cough Cardiovascular: denies: chest pain ED Past Medical Hx - Past Medical History Previous Medical History?: Yes Hx Hypertension: Yes (2001) Hx Heart Attack/AMI: No Hx Congestive Heart Failure: Yes Hx Diabetes: Yes (Pill control) Hx Deep Vein Thrombosis: No Hx GERD: No Hx Arthritis: No Hx Asthma: Yes (last attack 2wks ago) Hx HIV: No - Social History Smoking Status: Never Smoker Substance Use Type: None - Medications Home Medications: Home Medications Medication Instructions Recorded Confirmed Last Taken Type Aspirin [Adult Low Dose Aspirin EC] 81 mg PO DAILY 12/02/16 02/14/17 01/05/17 History AtorvaSTATin [Lipitor] 20 mg PO BID 12/02/16 02/14/17 01/05/17 History Magnesium Oxide [Mag-Ox] 400 mg PO BID 12/02/16 02/14/17 01/05/17 History Potassium Chloride [Klor-Con 10] 20 meq PO BID 12/02/16 02/14/17 01/05/17 History glipiZIDE [glipiZIDE ER] 5 mg PO QAM 12/02/16 02/14/17 01/05/17 History metFORMIN [Glucophage] 1,000 mg PO BID 12/02/16 02/14/17 01/05/17 History metOLazone [Metolazone] 5 mg PO BID 12/02/16 02/14/17 01/05/17 History Furosemide [Lasix TAB] 40 mg PO BID 02/14/17 02/14/17 Unknown History Spironolactone [Aldactone] 25 mg PO QDAY 02/14/17 02/14/17 Unknown History Azithromycin [Zithromax TAB] 500 mg PO QDAY #3 tablet 02/24/17 Unknown Rx Carvedilol [Coreg] 6.25 mg PO BID #60 tablet 02/24/17 Unknown Rx Gabapentin [Neurontin] 300 mg PO TID #90 capsule 02/24/17 Unknown Rx Lisinopril [Zestril TAB] 5 mg PO QDAY #30 tablet 02/24/17 Unknown Rx metOLazone [Zaroxolyn] 5 mg PO BID #60 tablet 02/24/17 Unknown Rx ED Physical Exam - General Limitations: No Limitations General appearance: alert, in no apparent distress, other (appears chronically ill) - Head Head exam: Present: atraumatic, normocephalic - Eye Eye exam: Absent: conjunctival injection, nystagmus - ENT ENT exam: Present: mucous membranes moist - Neck Neck exam: Present: normal inspection, full ROM - Respiratory Respiratory exam: Present: normal lung sounds bilaterally. Absent: respiratory distress - Cardiovascular Cardiovascular Exam: Present: normal rhythm, tachycardia, JVD. Absent: systolic murmur, diastolic murmur - GI/Abdominal GI/Abdominal exam: Present: soft, distended, normal bowel sounds. Absent: tenderness, guarding, rebound - Rectal Rectal exam: Present: deferred - exam: Present: other (soft compressible small left inguinal hernia) - Extremities Exam Extremities exam: Present: other (nonpitting edema in lower extremities) - Back Exam Back exam: Present: normal inspection - Neurological Exam Neurological exam: Present: alert, oriented X3 - Psychiatric Psychiatric exam: Present: normal affect, normal mood - Skin Skin exam: Present: warm, dry, intact, normal color. Absent: rash ED Course Vital Signs 04/18/18 04/18/18 04/18/18 15:15 16:39 16:45 Temperature 97.7 F Pulse Rate 110 H 103 H Respiratory 18 22 Rate Blood Pressure 135/89 129/93 131/89 Blood Pressure [Left] O2 Sat by Pulse 99 98 Oximetry 04/18/18 04/18/18 04/18/18 17:00 17:15 17:30 Temperature Pulse Rate 104 H 105 H 102 H Respiratory 21 23 13 Rate Blood Pressure 123/85 129/93 141/93 Blood Pressure [Left] O2 Sat by Pulse 96 98 Oximetry 04/18/18 04/18/18 04/18/18 18:19 18:30 18:46 Temperature Pulse Rate 104 H 105 H 104 H Respiratory 21 15 Rate Blood Pressure 141/93 161/102 136/91 Blood Pressure [Left] O2 Sat by Pulse 98 97 Oximetry 04/18/18 19:44 Temperature 98.3 F Pulse Rate 104 H Respiratory 14 Rate Blood Pressure Blood Pressure 129/79 [Left] O2 Sat by Pulse 98 Oximetry ED Medical Decision Making - Lab Data Result diagrams: 04/18/18 15:29 04/18/18 15:29 Laboratory Results - last 24 hr 04/18/18 04/18/18 04/18/18 15:25 15:29 15:29 WBC 5.7 RBC 4.41 Hgb 12.5 Hct 39.5 MCV 90 MCH 28 MCHC 32 RDW 18.5 H Plt Count 262 Lymph % (Auto) 16.8 Kane % (Auto) 13.1 H Eos % (Auto) 0.5 Baso % (Auto) 1.0 Lymph # 0.9 L Kane # 0.7 Eos # 0.0 Baso # 0.1 Seg Neutrophils % 68.6 Seg Neutrophils # 3.9 PT 16.4 H INR 1.28 H APTT 28.2 D-Dimer Sodium Potassium Chloride Carbon Dioxide Anion Gap BUN Creatinine Estimated GFR BUN/Creatinine Ratio Glucose POC Glucose 371 H Calcium Total Bilirubin AST ALT Alkaline Phosphatase Total Protein Albumin Albumin/Globulin Ratio Urine Color Urine Turbidity Urine pH Ur Specific Pickrell Urine Protein Urine Glucose (UA) Urine Ketones Urine Blood Urine Nitrite Urine Bilirubin Urine Urobilinogen Ur Leukocyte Esterase Urine WBC (Auto) Urine RBC (Auto) Hyaline Casts Urine Mucus 04/18/18 04/18/18 04/18/18 15:29 15:29 15:30 WBC RBC Hgb Hct MCV MCH MCHC RDW Plt Count Lymph % (Auto) Kane % (Auto) Eos % (Auto) Baso % (Auto) Lymph # Kane # Eos # Baso # Seg Neutrophils % Seg Neutrophils # PT INR APTT D-Dimer 1316 H Sodium 130 L Potassium 4.8 Chloride 91.6 L Carbon Dioxide 25 Anion Gap 18 BUN 33 H Creatinine 1.6 H Estimated GFR 54 BUN/Creatinine Ratio 21 Glucose 367 H POC Glucose Calcium 9.5 Total Bilirubin 1.40 H AST 22 ALT 14 Alkaline Phosphatase 160 H Total Protein 8.1 Albumin 4.0 Albumin/Globulin Ratio 1.0 Urine Color Yellow Urine Turbidity Clear Urine pH 5.0 Ur Specific Pickrell 1.005 Urine Protein 30 mg/dl Urine Glucose (UA) >=500 Urine Ketones Neg Urine Blood Neg Urine Nitrite Neg Urine Bilirubin Neg Urine Urobilinogen 4.0 Ur Leukocyte Esterase Neg Urine WBC (Auto) 1.0 Urine RBC (Auto) 2.0 Hyaline Casts 3 Urine Mucus Few - EKG Data 04/18/18 16:58 EKG obtained 1502 sinus tachycardia 110 bpm leftward axis no ST elevation prolonged QT anterior q waves - Radiology Data Radiology results: report reviewed Portable chest x-ray one view: Cardiomegaly with small pleural effusion versus pleural scarring, lungs are clear Very low probability of pulmonary embolism VQ scan - Medical Decision Making Mr. Piper presents with dyspnea and bilateral leg swelling. Due to tachycardia on presentation, d-dimer was obtained. D-dimer was elevated. Ventilation perfusion lung scan low risk for pulmonary embolism. Due to presentation patient had low risk probability of pulmonary embolism without persistent chest pain or significant shortness of breath. Oxygen saturation 98% on room air. Mr. Piper desired to be discharged home. He explained that he did have access to his medications. 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 I am unclear if he is compliant with medication. He appeared to be unable to recall his list of medication especially diuretic. Discharged home. Critical care attestation.: If time is entered above; I have spent that time in minutes in the direct care of this critically ill patient, excluding procedure time. ED Disposition Clinical Impression: CHF (congestive heart failure), Dyspnea, Leg swelling Disposition: DC-01 TO HOME OR SELFCARE Is pt being admited?: No Does the pt Need Aspirin: No Condition: Stable Instructions: Heart Failure (ED) Referrals: SHANE FIELDS MD [Primary Care Provider] - 3-5 Days
--- NOTE | 2018-04-18 17:26 | XRay Report ---
FINAL REPORT PROCEDURE: Chest. TECHNIQUE: Chest radiograph anteroposterior view. CPT 45087 HISTORY: Chest pain. COMPARISON: Chest 02/14/2017. FINDINGS: The heart size is mildly enlarged. There is mild tortuosity of the thoracic aorta. The lungs are curtis sly clear. There is minimal blunting at the right costophrenic angle. This could represent pleural sc arring or a tiny amount of pleural fluid. The soft tissues and regional skeleton are unremarkable. IMPRESSION: Cardiomegaly. Tiny right pleural effusion versus pleural scarring.
--- NOTE | 2018-04-18 19:21 | Nuclear Medicine Report ---
FINAL REPORT PROCEDURE: Nuclear medicine ventilation and perfusion lung scan. TECHNIQUE: Ventilation imaging was done in the posterior projection using 15 millicuries of xenon 13 3 gas. Perfusion imaging was done in multiple projections using 5 millicuries of technetium 99 M maa. HISTORY: Dyspnea, Elevated d dimer. COMPARISON: Comparison chest radiograph 04/18/2018. FINDINGS: There is symmetrical, homogeneous ventilation bilaterally. There is mild trapping of xenon gas in the left lung during the washout phase of the study. The perfusion images are fairly homogeneous. There are no significant perfusion defects identified. The scan carries a very low probability of pulmonary embolism. IMPRESSION: Very low probability of pulmonary embolism.
[2018-04-18 19:48] VITALS: BP 129/79
[2018-04-18] MEDS ORDERED: ULTRAM PO ONE (19:48)
== END 2018-04-18 20:25 | disposition home or self-care (01) ==
LOC: ED 14:23
DX: I11.0 Hypertensive heart disease with heart failure (principal); I50.9 Heart failure, unspecified; E11.9 Type 2 diabetes mellitus without complications; J45.909 Unspecified asthma, uncomplicated; Z79.84 Long term (current) use of oral hypoglycemic drugs
CPT/HCPCS: 36415; 71045; 78582; 80053; 81001; 82962; 83880; 85025; 85379; 85610; 85730; 93005; 93010; 96374; 99284; A9540; A9558; J1940